=== PATIENT | female | born 1995 | race Caucasian/White ===

== ENCOUNTER 2016-06-01 06:14 | Emergency (ER) ==
[2016-06-01 06:14] VITALS: BMI 34.3
[2016-06-01 06:20] VITALS: BP 129/82; TEMP 98.7
[2016-06-01] MEDS ORDERED: DUONEB NEB STA (06:32)
[2016-06-01] MEDS ORDERED: DECADRON 4 MG/ML SDV IM STA (06:32)
--- NOTE | 2016-06-01 06:35 | ED.PDOC ---
General ED Provider: Dr. LA NENA LEW Chief Complaint: Shortness of Air Stated Complaint: wheezing, coughing, shortness of breath for 2 days, hurts to breath. Time Seen by Physician: 06:33 Mode of Arrival: Walk-In Information Source: Patient Nursing and Triage Documentation Reviewed and Agree: Yes Respiratory Complaint Exam - Asthma Complaint/Exam Symptoms Are: Still present Timing: Constant Character: Reports: Wheezing, Productive cough Aggravating: Reports: Weather change, URI Alleviating: Reports: None Associated Signs and Symptoms: Reports: URI. Denies: Fever, SOA, Chest pain, Edema, Calf pain, Sinus infection, Rapid breathing, Labored breathing Related History: Reports: Similar episode Related Surgical History: Reports: None Status Asthmaticus Risk Factors: Reports: None Current Asthma Medication Usage: Yes Recent Antibiotics: No Respiratory Distress: None Accessory Muscle Use: No Retractions: Not Present Diminished Breath Sounds: Yes Prolonged Expiratory Phase: Yes Unable to Speak Full Sentences: No Differential Diagnoses: Acute Asthma, Pneumonia Review of Systems - Review Of Systems Constitutional: Reports: No symptoms Eyes: Reports: No symptoms Ears, Nose, Mouth, Throat: Reports: No symptoms Respiratory: Reports: Cough, Short of air Cardiac: Reports: No symptoms GI: Reports: No symptoms : Reports: No symptoms Musculoskeletal: Reports: No symptoms Skin: Reports: No symptoms Neurological: Reports: No symptoms Endocrine: Reports: No symptoms Hematologic/Lymphatic: Reports: No symptoms All Other Systems: Reviewed and Negative Past Medical History - Past Medical History Previously Healthy: No Endocrine: Reports: None Cardiovascular: Reports: Other (edema of feet) Respiratory: Reports: Asthma Hematological: Reports: None Gastrointestinal: Reports: None Genitourinary: Reports: None Neuro/Psych: Reports: Other (numbness in hands) Musculoskeletal: Reports: None Cancer: Reports: None - Surgical History General Surgical History: Reports: (with posto cellulitis), Other ( OVARIAN CYSTS/ UNDIAGNOSED MISCARRAGE 11/2010) - Family History Family History: Reports: Other (preeclampsa) - Social History Smoking Status: Current every day smoker, Heavy tobacco smoker Smoking Cessation Counseling Time: > 3 min - 10 min Hx Substance Use: No Alcohol Screening: Occasionally - Immunizations Tetanus Shot up to Date: Yes Physical Exam - Physical Exam Appearance: Ill-appearing, Obese Eyes: JOSUÉ, EOMI, Conjunctiva clear ENT: Ears normal, Nose normal, Oropharynx normal Respiratory: Breath sounds diminished, Wheezes Cardiovascular: RRR, Pulses normal, No rub, No murmur GI/: Soft, Nontender, No masses, Bowel sounds normal, No Organomegaly Musculoskeletal: Normal strength, ROM intact, No edema, No calf tenderness Skin: Warm, Dry, Normal color Neurological: Sensation intact, Motor intact, Reflexes intact, Cranial nerves intact, Alert, Oriented Psychiatric: Affect appropriate, Mood appropriate Critical Care Note - Critical Care Note Total Time (mins): 0 Course - Course Orders, Labs, Meds: Orders Category Date Time Status NEBULIZER TREATMENT Stat CARDIO 06/01/16 06:32 Ordered Dexamethasone 4 mg/ml Inj [Decadron 4 mg/ml Sdv] MEDS 06/01/16 06:32 Stat 4 mg IM ONCE STA Ipratropium/Albuterol Neb [Duoneb] MEDS 06/01/16 06:32 Stat 1 vial NEB ONCE STA CHEST, 1V AP ONLY Stat RADS 06/01/16 06:32 Ordered Vital Signs: Temp Pulse Resp BP Pulse Ox 06/01/16 06:15 98.7 F 98 H 20 129/82 100 Departure - Departure Time of Disposition: 07:00 Disposition: HOME SELF-CARE Discharge Problem: Asthma exacerbation, Pleurisy Instructions: Asthma (ED) Condition: Stable Pt referred to PMD for follow-up: Yes Additional Instructions: STOP smoking. continue using albuterol 3-4 times a day If not better come back Prescriptions: Cephalexin [Keflex] 500 mg PO Q12HR #20 capsule Methylprednisolone [Medrol Dosepak] 4 mg PO DIRECTED #1 pkg Allergies/Adverse Reactions: Allergies ZEST SOAP Adverse Reaction (Uncoded 06/01/16 06:20) Swelling, BURNING, EXTREME PAIN Home Medications: Ambulatory Orders Clonazepam 0.5 mg PO TID 08/17/15 Etonogestrel [Nexplanon] 68 mg SQ d 08/17/15 Sertraline HCl [Zoloft] 100 mg PO 2 tabs daily 08/17/15 Cephalexin [Keflex] 500 mg PO Q12HR #20 capsule 06/01/16 Methylprednisolone [Medrol Dosepak] 4 mg PO DIRECTED #1 pkg 06/01/16 Disposition Discussed With: Patient
--- NOTE | 2016-06-01 07:22 | DI ---
EXAM: Single view of the chest. History: Short of breath Comparison: Chest radiograph 02/20/2014 Findings: Heart size is normal. No focal consolidation. No appreciable pleural fluid and no pneum othorax. Calcified granuloma again seen within the right lung. No acute osseous abnormalities. Impression: No acute cardiopulmonary process.
== END 2016-06-01 07:05 | disposition home or self-care (01) ==
LOC: ED 06:14
DX: J45.901 Unspecified asthma with (acute) exacerbation (principal); R09.1 Pleurisy; F17.210 Nicotine dependence, cigarettes, uncomplicated
CPT/HCPCS: 94640; 96372; 99283

== ENCOUNTER 2016-06-01 23:51 | Emergency (ER) ==
[2016-06-01 23:52] VITALS: BMI 34.3
[2016-06-02 00:03] VITALS: TEMP 98.6
[2016-06-02] MEDS ORDERED: IMITREX SUBCUT STA (00:38)
--- NOTE | 2016-06-02 00:47 | ED.PDOC ---
General ED Provider: Dr. JOSE IKLLIAN Chief Complaint: Headache Stated Complaint: patient complaints of headache that started this evening. Time Seen by Physician: 00:45 Mode of Arrival: Walk-In Information Source: Patient Exam Limitations: No limitations Nursing and Triage Documentation Reviewed and Agree: Yes Neurological Complaint Exam - Headache Complaint/Exam Onset: Sudden Duration: 7 hours Timing: Constant Worst Headache Ever: No Initial Severity: Moderate Current Severity: Severe Location: Diffuse Character: Reports: Throbbing, Unable to describe Aggravating: Reports: Bright lights Alleviating: Reports: None Associated Signs and Symptoms: Denies: Dizziness, Seizure, Nausea, Vomiting, Sinus pressure, Fever, Neck pain, Neck stiffness, Decreased LOC, Visual changes Related Surgical History: Reports: None SAH Risk Factors: Reports: None Meningitis Risk Factors: Reports: None SDH Risk Factors: Reports: None Normal Head CT Within Last 12 Months: Yes Fundoscopic Exam: Present: Normal Findings Papilledema Present: No Temporal Artery Tenderness: Present: None Sinus Tenderness: Present: None TMJ Tenderness: Present: None Meningeal Signs Positive: No Pain on Passive Flexion-Positive Kernig's: No ROM Limited In: No Limitiations Focal Weakness: Present: None Focal Sensory Loss: Present: None Gait: Normal Nystagmus Present: No Gag Reflex Present: No Babinski Sign: Negative Right, Negative Left Heel to Toe Normal: No Differential Diagnoses: Migraine Review of Systems - Review Of Systems Constitutional: Reports: No symptoms Eyes: Reports: No symptoms Ears, Nose, Mouth, Throat: Reports: No symptoms Respiratory: Reports: No symptoms Cardiac: Reports: No symptoms GI: Reports: No symptoms : Reports: No symptoms Musculoskeletal: Reports: No symptoms Skin: Reports: No symptoms Neurological: Reports: Anxiety, Headache Endocrine: Reports: No symptoms Hematologic/Lymphatic: Reports: No symptoms All Other Systems: Reviewed and Negative Past Medical History - Past Medical History Previously Healthy: No Endocrine: Reports: None Cardiovascular: Reports: Other (edema of feet) Respiratory: Reports: Asthma Hematological: Reports: None Gastrointestinal: Reports: None Genitourinary: Reports: None Neuro/Psych: Reports: Migraine, Other (numbness in hands) Musculoskeletal: Reports: None Cancer: Reports: None Last Menstrual Period: PRESENTLY Other Pertinent Past Medical History: states using 800mg motrin witout benefit and had vaginal and nasal bleed w - Surgical History General Surgical History: Reports: (with posto cellulitis), Other ( OVARIAN CYSTS/ UNDIAGNOSED MISCARRAGE 11/2010) - Family History Family History: Reports: Other (preeclamps[place]) - Social History Smoking Status: Current every day smoker, Heavy tobacco smoker Hx Substance Use: No Alcohol Screening: Occasionally - Immunizations Tetanus Shot up to Date: Yes Physical Exam - Physical Exam Appearance: Ill-appearing Ill-appearing: Moderate Pain Distress: Moderate Eyes: JOSUÉ, EOMI, Conjunctiva clear ENT: Ears normal, Nose normal, Oropharynx normal Neck: Supple Respiratory: Airway patent, Breath sounds clear, Breath sounds equal, Respirations nonlabored Cardiovascular: RRR, Pulses normal, No rub, No murmur GI/: Soft, Nontender, No masses, Bowel sounds normal, No Organomegaly Musculoskeletal: Normal strength, ROM intact, No edema, No calf tenderness Skin: Warm, Dry, Normal color Neurological: Sensation intact, Motor intact, Reflexes intact, Cranial nerves intact, Alert, Oriented Psychiatric: Anxious Critical Care Note - Critical Care Note Total Time (mins): 0 Course - Course Orders, Labs, Meds: Orders Category Date Time Status Sumatriptan Succinate [Imitrex] MEDS 06/02/16 00:38 Discontinued 6 mg SUBCUT ONCE STA Medications Discontinued Medications Generic Name Dose Route Start Last Admin Trade Name Freq PRN Reason Stop Dose Admin Sumatriptan Succinate 6 mg 06/02/16 00:38 06/02/16 00:50 Imitrex SUBCUT 06/02/16 00:39 6 mg ONCE STA Administration Vital Signs: Temp Pulse Resp BP Pulse Ox 06/02/16 01:22 96 H 20 129/87 98 06/01/16 23:52 98.6 F 110 H 20 144/93 H 96 Departure - Departure Time of Disposition: 01:31 Disposition: HOME SELF-CARE Discharge Problem: Headache Instructions: Migraine Headache (ED) Condition: Fair Pt referred to PMD for follow-up: Yes Additional Instructions: Push fluids Follow up with PCP in 3 days Prescriptions: Butalb/Acetaminophen/Caffeine [Fioricet] 1 each PO TID PRN #15 tablet PRN Reason: headache Allergies/Adverse Reactions: Allergies ZEST SOAP Adverse Reaction (Uncoded 06/02/16 00:03) Swelling, BURNING, EXTREME PAIN Home Medications: Ambulatory Orders Clonazepam 0.5 mg PO TID 08/17/15 Etonogestrel [Nexplanon] 68 mg SQ d 08/17/15 Sertraline HCl [Zoloft] 200 mg PO DAILY 08/17/15 Cephalexin [Keflex] 500 mg PO Q12HR #20 capsule 06/01/16 Methylprednisolone [Medrol Dosepak] 4 mg PO DIRECTED #1 pkg 06/01/16 Butalb/Acetaminophen/Caffeine [Fioricet] 1 each PO TID PRN #15 tablet 06/02/16 Disposition Discussed With: Patient, Family
[2016-06-02 01:23] VITALS: BP 129/87
== END 2016-06-02 01:42 | disposition home or self-care (01) ==
LOC: ED 23:51
DX: G43.909 Migraine, unspecified, not intractable, without status migrainosus (principal); F17.210 Nicotine dependence, cigarettes, uncomplicated; J45.901 Unspecified asthma with (acute) exacerbation; R09.1 Pleurisy
CPT/HCPCS: 94640; 96372; 99283

== ENCOUNTER 2016-06-17 23:35 | Emergency (ER) | payer OTHER ==
[2016-06-17 23:44] VITALS: BP 127/88; TEMP 98.8; BMI 36.3
--- NOTE | 2016-06-17 23:52 | ED.PDOC ---
General ED Provider: Dr. NAKIA GIVENS-ER Chief Complaint: Neck Pain Non-Injury Stated Complaint: my neck hurts--my appt with pain management has been rescheduled Time Seen by Physician: 23:50 Mode of Arrival: Walk-In Information Source: Patient Exam Limitations: No limitations [facility] Nursing and Triage Documentation Reviewed and Agree: Yes Musculoskeletal Complaint Exam - Neck Pain Complaint/Exam Mechanism of Injury: Reports: No known trauma Onset/Duration: several weeks Symptoms Are: Still present Timing: Constant Initial Severity: Mild Current Severity: Moderate Location: Reports: Discrete (posterior neck) Character: Reports: Dull, Aching, Spasmodic, Stiffness Aggravating: Reports: Position, Movement Alleviating: Reports: None Associated Signs and Symptoms: Denies: Swelling, Redness, Bruising, Fever, Nuchal rigidity, Weakness, Headache, Paresthesia Meningitis Risk Factors: Reports: None Cervical Spine Injury Risk Factors: Reports: None Related Surgical History: Reports: None Carotid Bruit Present: No Pain on Passive Flexion: No Positive Kernig's Sign: No ROM Limited In: Present: Flexion, Extension Pain Located at: posterior neck Tenderness: Present: Midline Radiates to: Present: Right arm Focal Weakness: Present: None Focal Sensory Loss: Reports: None Differential Diagnoses: Other Review of Systems - Review Of Systems Constitutional: Reports: No symptoms Eyes: Reports: No symptoms Ears, Nose, Mouth, Throat: Reports: No symptoms Respiratory: Reports: No symptoms Cardiac: Reports: No symptoms GI: Reports: No symptoms : Reports: No symptoms Musculoskeletal: Reports: Neck pain Skin: Reports: No symptoms Neurological: Reports: No symptoms Endocrine: Reports: No symptoms Hematologic/Lymphatic: Reports: No symptoms All Other Systems: Reviewed and Negative Past Medical History - Past Medical History Previously Healthy: No Endocrine: Reports: None Cardiovascular: Reports: Other (edema of feet) Respiratory: Reports: Asthma Hematological: Reports: None Gastrointestinal: Reports: None Genitourinary: Reports: None Neuro/Psych: Reports: Migraine, Other (numbness in hands) Musculoskeletal: Reports: None Cancer: Reports: None Last Menstrual Period: this month - unsure of date Other Pertinent Past Medical History: states using 800mg motrin witout benefit and had vaginal and nasal bleed w - Surgical History General Surgical History: Reports: (with posto cellulitis), Other ( OVARIAN CYSTS/ UNDIAGNOSED MISCARRAGE 11/2010) - Family History Family History: Reports: Other (preeclampsa) - Social History Smoking Status: Current every day smoker, Heavy tobacco smoker Hx Substance Use: No Alcohol Screening: None Lives: With family - Immunizations Tetanus Shot up to Date: Yes Physical Exam - Physical Exam Appearance: Well-appearing, No pain distress, Well-nourished Pain Distress: Moderate Eyes: JOSUÉ, EOMI, Conjunctiva clear ENT: Ears normal, Nose normal, Oropharynx normal Neck: Supple Respiratory: Airway patent, Breath sounds clear, Breath sounds equal, Respirations nonlabored Cardiovascular: RRR, Pulses normal, No rub, No murmur GI/: Soft, Nontender, No masses, Bowel sounds normal, No Organomegaly Musculoskeletal: Normal strength, ROM intact, No edema, No calf tenderness Skin: Warm Neurological: Sensation intact, Motor intact, Reflexes intact, Cranial nerves intact, Alert, Oriented Psychiatric: Affect appropriate, Mood appropriate Critical Care Note - Critical Care Note Total Time (mins): 0 Course - Course Vital Signs: Temp Pulse Resp BP Pulse Ox 06/17/16 23:36 98.8 F 110 H 20 127/88 96 Departure - Departure Time of Disposition: 23:53 Disposition: HOME SELF-CARE Discharge Problem: Chronic neck pain Instructions: Neck Pain (ED) Condition: Good Pt referred to PMD for follow-up: Yes Additional Instructions: f/u with pcp Allergies/Adverse Reactions: Allergies ZEST SOAP Adverse Reaction (Uncoded 06/17/16 23:44) Swelling, BURNING, EXTREME PAIN Home Medications: Ambulatory Orders Etonogestrel [Nexplanon] 68 mg SQ d 08/17/15 Butalb/Acetaminophen/Caffeine [Fioricet] 1 each PO TID PRN #15 tablet 06/02/16 Disposition Discussed With: Patient
[2016-06-17] MEDS ORDERED: MORPHINE 4 MG/ML SYRINGE IM STA (23:54)
[2016-06-17] MEDS ORDERED: PHENERGAN 25 MG/ML VIAL IM STA (23:54)
[2016-06-17] MEDS ORDERED: NORFLEX IM STA (23:54)
[2016-06-18 00:22] LABS: URINE PREGNANCY INTERNAL QC INTERNAL QC VALID
== END 2016-06-18 01:10 | disposition home or self-care (01) ==
LOC: ED 23:35
DX: M54.2 Cervicalgia (principal); G89.29 Other chronic pain; F17.210 Nicotine dependence, cigarettes, uncomplicated
CPT/HCPCS: 81025; 96372; 99283

== ENCOUNTER 2016-07-12 21:11 | Emergency (ER) ==
[2016-07-12 21:22] VITALS: BP 128/93; TEMP 98.9; BMI 35.0
[2016-07-12 21:30] LABS: BILIRUBIN,URINE Negative (NEGATIVE); KETONES,URINE Negative (NEGATIVE); LEUKOCYTE ESTERASE ,URINE Negative (NEGATIVE); NITRITE,URINE Negative (NEGATIVE); PROTEIN,URINE Negative (NEGATIVE); URINE, BLOOD Negative (NEGATIVE)
[2016-07-12 21:35] LABS: ADD URINE MICROSCOPIC NO; URINE PREGNANCY INTERNAL QC INTERNAL QC VALID
[2016-07-12] MEDS ORDERED: TORADOL IVP STA (21:45)
[2016-07-12] MEDS ORDERED: ZOFRAN 4 MG/2 ML IVP STA (21:47)
[2016-07-12] MEDS ORDERED: SODIUM CHLORIDE 1,000 ML IV STA (21:47)
[2016-07-12 22:05] LABS: BASOPHILS # (AUTO) 0.1 K/uL (0-0.2); BASOPHILS % (AUTO) 0.7 % (0.0-3.0); EOSINOPHILS # (AUTO) 0.8 K/ul (0.0-0.7); EOSINOPHILS % (AUTO) 8.5 % (0.0-7.0); HEMATOCRIT 45.5 % (37.0-47.0); HEMOGLOBIN 15.5 g/dl (12.0-16.0); IMMATURE GRANULOCYTE % (AUTO) 0.2 % (0.0-5.0); LYMPHOCYTES # (AUTO) 2.6 K/uL (0.60-3.4); LYMPHOCYTES % (AUTO) 27.1 (10.0-50.0); MEAN CORPUSCULAR HEMOGLOBIN 29.4 pg (27.0-31.0); MEAN CORPUSCULAR HGB CONC 34.1 (31.8-35.4); MEAN CORPUSCULAR VOLUME 86.2 fl (81.0-99.0); MONOCYTES # (AUTO) 0.7 K/uL (0.4-2.0); MONOCYTES % (AUTO) 6.7 (0-10); NEUTROPHILS # (AUTO) 5.5 K/ul (2.0-6.9); NEUTROPHILS % (AUTO) 56.8; PLATELET COUNT 221 10^3/uL (140-440); RED BLOOD COUNT 5.28 10^6/ul (4.20-5.40); WHITE BLOOD COUNT 9.69 K/ul (4.6-10.2)
[2016-07-12 22:26] LABS: ALBUMIN 3.9 g/dL (3.4-5.0); ALBUMIN/GLOBULIN RATIO 1.3; ANION GAP 12.9; BILIRUBIN,TOTAL 0.12 mg/dL (0.00-1.20); BUN/CREATININE RATIO 12.65; CALCIUM 9.7 mg/dL (8.2-10.2); CREATININE 0.79 mg/dL (0.60-1.30); POTASSIUM 3.9 mmol/L (3.5-5.10); TOTAL PROTEIN 6.9 g/dL (6.4-8.2)
--- NOTE | 2016-07-12 23:12 | CT ---
EXAM: CT abdomen pelvis without intravenous contrast 07/12/2016. Sagittal and coronal reformatted images obtained HISTORY: Lower abdominal pain. Ovarian cysts. COMPARISON: 02/19/2016 FINDINGS: The liver, gallbladder, adrenal glands and kidneys show no acute process. The spleen and pancreas show no acute abnormality. There is no bowel obstruction. Normal appendix. Unremarkable urinary bladder. No free air. Left adnexal cystic lesion on image 17 measures approximately 5.0 x 3.0 cm diameter. Pelvic ultrasound could be obtained for further evaluation. Limited characterization due to the lac k of intravenous contrast. There is trace adjacent free fluid. IMPRESSION: 1. No urinary or bowel obstruction. 2. Left adnexal cyst measures approximately 5.0 x 3.0 cm diameter. Limited characterization due to lack of intravenous contrast. Pelvic ultrasound could be obtained for further evaluation. 3. Trace pelvic free fluid.
[2016-07-12] MEDS ORDERED: DILAUDID 1 MG/ML SYRINGE IVP STA (23:20)
--- NOTE | 2016-07-12 23:39 | ED.PDOC ---
General ED Provider: Dr. JOSE KILLIAN Chief Complaint: Abdominal Pain Stated Complaint: Patient is a 21 year old female who comes to the ER with c/o of sharp to dull pain in low abdominal area. Feels like prior ovarian cyst. she had aCT last summer with findings of 7.7 cm cyst in left ovary. Has OBGY apt in the morning. Time Seen by Physician: 22:00 Mode of Arrival: Walk-In Information Source: Patient Exam Limitations: No limitations [facility] and T[facility] Documentation Reviewed and Agree: Yes Review of Systems - Review Of Systems Constitutional: Reports: Loss of appetite Eyes: Reports: No symptoms Ears, Nose, Mouth, Throat: Reports: No symptoms Respiratory: Reports: No symptoms Cardiac: Reports: No symptoms GI: Reports: Abdominal pain (Left lower quadrant ) : Reports: Pain Musculoskeletal: Reports: No symptoms Skin: Reports: No symptoms Neurological: Reports: Anxiety All Other Systems: Reviewed and Negative Past Medical History - Past Medical History Previously Healthy: No Endocrine: Reports: None Cardiovascular: Reports: Other (edema of feet) Respiratory: Reports: Asthma Hematological: Reports: None Gastrointestinal: Reports: None Genitourinary: Reports: None Neuro/Psych: Reports: Migraine, Other (numbness in hands) Musculoskeletal: Reports: None Cancer: Reports: None Last Menstrual Period: 10 days ago Other Pertinent Past Medical History: states using 800mg motrin witout benefit and had vaginal and nasal bleed w - Surgical History General Surgical History: Reports: (with posto cellulitis), Other ( OVARIAN CYSTS/ UNDIAGNOSED MISCARRAGE 11/2010) - Family History Family History: Reports: Other (preeclampsa) - Social History Smoking Status: Current every day smoker, Heavy tobacco smoker Hx Substance Use: No Alcohol Screening: None - Immunizations Tetanus Shot up to Date: Yes Physical Exam - Physical Exam Appearance: Ill-appearing, Obese Ill-appearing: Moderate Pain Distress: Severe Neck: Supple Respiratory: Airway patent, Breath sounds clear, Breath sounds equal, Respirations nonlabored Cardiovascular: Tachycardia GI/: Soft, Tender (Left lower quadrant ) Musculoskeletal: Normal strength, ROM intact, No edema, No calf tenderness Skin: Warm, Dry, Normal color Neurological: Sensation intact, Motor intact, Reflexes intact, Cranial nerves intact, Alert, Oriented Psychiatric: Anxious Interpretation - Radiology Interpretation Radiology Interpretation By: Radiologist Radiology Results: Positive Exam Interpreted: CT Scan (Left Ovarian Cyst 5 cm ) Re-Evaluation - Re-Evaluation Time of Re-Evaluation: 23:40 Status: Improved Pain Level: minimal after Dilaudid. Critical Care Note - Critical Care Note Total Time (mins): 0 Course - Course Hematology/Chemistry: 07/12/16 21:50 07/12/16 21:50 Orders, Labs, Meds: Lab Review 07/12/16 07/12/16 21:25 21:50 WBC 9.69 RBC 5.28 Hgb 15.5 Hct 45.5 MCV 86.2 MCH 29.4 MCHC 34.1 RDW [place] 13.8 Plt Count 221 Immature Gran % (Auto) 0.2 Neut % (Auto) 56.8 Lymph % (Auto) 27.1 [place] % (Auto) 6.7 Eos % (Auto) 8.5 H Baso % (Auto) 0.7 Immature Gran # (Auto) 0.0 Neut # 5.5 Lymph # 2.6 [place] # 0.7 Eos # 0.8 H Baso # 0.1 Sodium 139 Potassium 3.9 Chloride 111 H Carbon Dioxide 19 L Anion Gap 12.9 BUN 10 Creatinine 0.79 Estimated GFR (MDRD) 92.00 BUN/Creatinine Ratio 12.65 Glucose 90 Calcium 9.7 Total Bilirubin 0.12 AST 13 L ALT 15 Alkaline Phosphatase 62 Total Protein 6.9 Albumin 3.9 Globulin 3.0 Albumin/Globulin Ratio 1.30 Amylase 68 Lipase 44 Urine Color Yellow Urine Clarity Clear Urine pH 6.0 Ur Specific [place] >=1.030 Urine Protein Negative Urine Glucose (UA) Negative Urine Ketones Negative Urine Blood Negative Urine Nitrite Negative Urine Bilirubin Negative Urine Urobilinogen 0.2 Ur Leukocyte Esterase Negative Urine Test Negative Orders Category Date Time Status ED IV/MEDIPORT/POWERPORT .ONCE EMERGENCY 07/12/16 22:03 Active AMYLASE Stat LAB 07/12/16 21:50 Completed CBC W/ AUTO DIFF Stat LAB 07/12/16 21:50 Completed COMPREHENSIVE METABOLIC PANEL Stat LAB 07/12/16 21:50 Completed LIPASE Stat LAB 07/12/16 21:50 Completed URINALYSIS C & S IF INDICATED Stat LAB 07/12/16 21:25 Completed URINE Stat LAB 07/12/16 21:25 Completed 0.9 % Sodium Chloride [Saline Flush] MEDS 07/12/16 22:03 Discontinued 1 syr IVF PRN PRN Hydromorphone HCl [Dilaudid 1 mg/ml Syringe] MEDS 07/12/16 23:20 Discontinued 1 mg IVP ONCE STA Ketorolac Tromethamine [Toradol] MEDS 07/12/16 21:45 Discontinued 30 mg IVP ONCE STA Ondansetron HCl/Pf [Zofran 4 mg/2 ml] MEDS 07/12/16 21:47 Discontinued 4 mg IVP ONCE STA Sodium Chloride 0.9% [Sodium Chloride] 1,000 ml MEDS 07/12/16 21:[address] ABD/PEL WO RENAL STONE PROT Stat RADS 07/12/16 22:06 Completed Medications Discontinued Medications Generic Name Dose Route Start Last Admin Trade Name Freq PRN Reason Stop Dose Admin Hydromorphone HCl 1 mg 07/12/16 23:20 07/12/16 23:30 Dilaudid 1 Mg/Ml Syringe IVP 07/12/16 23:21 1 mg ONCE STA Administration Sodium Chloride 1,000 mls @ 1,000 mls/hr 07/12/16 21:47 07/12/16 22:38 Sodium Chloride IV 07/12/16 22:46 1,000 mls/hr BOLUS STA Administration Ketorolac Tromethamine 30 mg 07/12/16 21:45 07/12/16 22:41 Toradol IVP 07/12/16 21:46 30 mg ONCE STA Administration Ondansetron HCl 4 mg 07/12/16 21:47 07/12/16 22:39 Zofran 4 Mg/2 Ml IVP 07/12/16 21:48 4 mg ONCE STA Administration Sodium Chloride 1 syr 07/12/16 22:03 07/12/16 22:44 Saline Flush IVF 1 syr PRN PRN Administration To flush IV Vital Signs: Temp Pulse Resp BP Pulse Ox 07/12/16 21:12 98.9 F 104 H 20 128/93 H 96 Departure - Departure Time of Disposition: 23:40 Disposition: HOME SELF-CARE Discharge Problem: Ovarian cyst Instructions: Ovarian Cyst (ED) Condition: Stable Pt referred to PMD for follow-up: Yes Additional Instructions: Push fluids Take pain medications as prescribed. Keep Apt with OBGYN in the Morning. Prescriptions: Hydrocodone/Acetaminophen [[place] 5-325 Tablet] 1 tab PO Q6HR PRN #20 tablet PRN Reason: PAIN Allergies/Adverse Reactions: Allergies ZEST SOAP Adverse Reaction (Uncoded 07/12/16 21:22) Swelling, BURNING, EXTREME PAIN Home Medications: Ambulatory Orders Etonogestrel [Nexplanon] 68 mg SQ d 08/17/15 Sertraline HCl [Zoloft] 200 mg PO DAILY #60 06/22/16 Hydrocodone/Acetaminophen [[place] 5-325 Tablet] 1 tab PO Q6HR PRN #20 tablet Disposition Discussed With: Patient
== END 2016-07-12 23:51 | disposition home or self-care (01) ==
LOC: ED 21:11
DX: N83.202 Unspecified ovarian cyst, left side (principal); F17.210 Nicotine dependence, cigarettes, uncomplicated
CPT/HCPCS: 36415; 74176; 80053; 81001; 81025; 82150; 83690; 85025; 96361; 96374; 96375; 99283

== ENCOUNTER 2016-08-04 13:10 | Outpatient (CLI) ==
[2016-08-04 15:36] LABS: FLU INTERNAL QC INTERNAL QC VALID; RAPID FLU A NEGATIVE (NEGATIVE); RAPID FLU B NEGATIVE (NEGATIVE)
== END 2016-08-04 13:11 | disposition home or self-care (01) ==
LOC: LAB 13:10
PROVIDERS: ATTEND Nurse Practitioner Family
DX: J02.9 Acute pharyngitis, unspecified (principal); R52 Pain, unspecified
CPT/HCPCS: 87651; 87804; 87880

== ENCOUNTER 2016-08-14 13:15 | Emergency (ER) ==
[2016-08-14 13:23] VITALS: BP 132/87; TEMP 98.5; BMI 35.6
[2016-08-14] MEDS ORDERED: SOLU-MEDROL 125 MG IVP STA (13:42)
[2016-08-14] MEDS ORDERED: DUONEB NEB STA ×2 (13:42→14:05)
--- NOTE | 2016-08-14 13:43 | ED.PDOC ---
General ED Provider: Dr. SHIVAM BOOKER JR Chief Complaint: Shortness of Air Stated Complaint: hx asthma--became soa this am at 0900--feels like breathing denita straw--has some rt side chest pain--has used neb/inhaler in past but is out of meds-[End]has faint audible wheezes--bilateral wheezes heard on ausultation-- [ End ] 98.5 80 16 96% 132/87 10 Time Seen by Physician: 13:41 Mode of Arrival: Walk-In Information Source: Patient Exam Limitations: No limitations Primary Care [facility] Nursing and Triage Documentation Reviewed and Agree: No Review of Systems - Review Of Systems Constitutional: Reports: Malaise, Weakness Eyes: Reports: No symptoms Ears, Nose, Mouth, Throat: Reports: Ear pain, Throat pain Respiratory: Reports: Short of air, Wheezing, Other (pleuritic chest pain) Cardiac: Reports: Chest pain GI: Reports: No symptoms : Reports: No symptoms Musculoskeletal: Reports: No symptoms Skin: Reports: No symptoms Neurological: Reports: No symptoms Endocrine: Reports: No symptoms Hematologic/Lymphatic: Reports: No symptoms All Other Systems: Other Past Medical History - Past Medical History Previously Healthy: No Endocrine: Reports: None Cardiovascular: Reports: Other (edema of feet) Respiratory: Reports: Asthma, Other (C-7 FX, (3) C 4-6 BULGING DISC IN NECK WITH NARROW PASSAGEWAY) Hematological: Reports: None Gastrointestinal: Reports: None Genitourinary: Reports: None Neuro/Psych: Reports: Migraine, Anxiety, Depression, Other (numbness in hands; C 4-6 BULGING DISC IN NECK WITH NARROW PASSAGEWAY) Musculoskeletal: Reports: Arthritis Cancer: Reports: None Last Menstrual Period: 4 days agoasth depr anx arth Other Pertinent Past Medical History: states using 800mg motrin witout benefit and had vaginal and nasal bleed w - Surgical History General Surgical History: Reports: (with postop cellulitis), Tonsillectomy, Orthopedic (C-7 FX,), Other (OVARIAN CYSTS/ UNDIAGNOSED MISCARRAGE 11/2010; EAR TUBES) - Family History Family History: Reports: Other (preeclampsa) - Social History Smoking Status: Current every day smoker, Heavy tobacco smoker Hx Substance Use: No Alcohol Screening: None Physical Exam - Physical Exam Appearance: Ill-appearing Ill-appearing: Moderate Pain Distress: Moderate Eyes: JOSUÉ ENT: Nose normal, Oropharynx normal Neck: Supple Respiratory: Airway patent, Breath sounds diminished, Wheezes Cardiovascular: RRR, Tachycardia Musculoskeletal: Normal strength Skin: Warm Neurological: Sensation intact Interpretation - Radiology Interpretation Radiology Interpretation By: Radiologist Radiology Results: Negative Exam Interpreted: CXR Critical Care Note - Critical Care Note Total Time (mins): 0 Course - Course Hematology/Chemistry: 08/14/16 13:49 08/14/16 13:49 Orders, Labs, Meds: Lab Review 08/14/16 08/14/16 12:46 13:49 WBC 10.84 H RBC 5.35 Hgb 15.4 Hct 44.4 MCV 83.0 MCH 28.8 MCHC 34.7 RDW [employer] 12.9 Plt Count 250 Immature Gran % (Auto) 0.4 Neut % (Auto) 64.2 Lymph % (Auto) 23.9 [place] % (Auto) 5.4 Eos % (Auto) 5.4 Baso % (Auto) 0.7 Immature Gran # (Auto) 0.0 Neut # 7.0 H Lymph # 2.6 [place] # 0.6 Eos # 0.6 Baso # 0.1 Sodium 138 Potassium 4.1 Chloride 108 H Carbon Dioxide 22 Anion Gap 12.1 BUN 13 Creatinine 0.84 Estimated GFR (MDRD) 86.00 BUN/Creatinine Ratio 15.47 Glucose 89 Calcium 9.4 Total Bilirubin 0.57 AST 13 L ALT 13 Alkaline Phosphatase 76 Total Protein 7.2 Albumin 4.0 Globulin 3.2 Albumin/Globulin Ratio 1.25 Serum , Qual Negative Orders Category Date Time Status NEBULIZER TREATMENT Stat CARDIO 08/14/16 13:42 Completed ED IV/MEDIPORT/POWERPORT .ONCE EMERGENCY 08/14/16 13:42 Active CBC W/ AUTO DIFF Stat LAB 08/14/16 13:49 Completed COMPREHENSIVE METABOLIC PANEL Stat LAB 08/14/16 13:49 Completed MOLECULAR GROUP A STREP Stat LAB 08/14/16 13:50 Results SERUM TEST [SERUM ] Stat LAB 08/14/16 12:46 Completed STREP SCREEN Stat LAB 08/14/16 13:50 Results 0.9 % Sodium Chloride [Saline Flush] MEDS 08/14/16 13:42 Discontinued 1 syr IVF PRN PRN Butorphanol Tartrate [Stadol] MEDS 08/14/16 14:19 Discontinued 2 mg IVP ONCE STA Ipratropium/Albuterol Neb [Duoneb] MEDS 08/14/16 13:42 Discontinued 1 vial NEB ONCE STA Ketorolac Tromethamine [Toradol] MEDS 08/14/16 13:46 Discontinued 30 mg IVP ONCE STA Methylprednisolone Sod Succ/Pf [Solu-Medrol 125 mg] MEDS 08/14/16 13:42 Discontinued 125 mg IVP ONCE STA Ondansetron HCl/Pf [Zofran 4 mg/2 ml] MEDS 08/14/16 14:19 Discontinued 4 mg IVP ONCE STA CHEST, 2 VIEWS PA & LAT Stat RADS 08/14/16 13:42 Completed Medications Discontinued Medications Generic Name Dose Route Start Last Admin Trade Name Freq PRN Reason Stop Dose Admin Albuterol/Ipratropium 1 vial 08/14/16 13:42 08/14/16 13:57 Duoneb NEB 08/14/16 13:43 1 vial ONCE STA Administration Butorphanol Tartrate 2 mg 08/14/16 14:19 08/14/16 14:27 Stadol IVP 08/14/16 14:20 2 mg ONCE STA Administration Ketorolac Tromethamine 30 mg 08/14/16 13:46 08/14/16 14:59 Toradol IVP 08/14/16 13:47 Not Given ONCE STA Methylprednisolone Sodium Succinate 125 mg 08/14/16 13:42 08/14/16 14:15 Solu-Medrol 125 Mg IVP 08/14/16 13:43 125 mg ONCE STA Administration Ondansetron HCl 4 mg 08/14/16 14:19 08/14/16 14:27 Zofran 4 Mg/2 Ml IVP 08/14/16 14:20 4 mg ONCE STA Administration Sodium Chloride 1 syr 08/14/16 13:42 Saline Flush IVF PRN PRN To flush IV Vital Signs: Temp Pulse Resp BP Pulse Ox 08/14/16 13:15 98.5 F 80 16 132/87 96 Departure - Departure Time of Disposition: 14:29 Disposition: HOME SELF-CARE Discharge Problem: Asthma attack Instructions: How to Use a Nebulizer (ED), Asthma (ED) Condition: Good Pt referred to PMD for follow-up: Yes Additional Instructions: medications as prescribed solumedrol given once if not resolved in three days may begin medrol dose pack if OK with PMD duonebs two to four times each day for three days recheck PMD 3-9 days return if fever over 101.0 Prescriptions: Acetaminophen with Codeine [Tylenol #3 Tab] 1 - 2 tab PO QID PRN #20 tablet PRN Reason: PAIN Ipratropium/Albuterol Neb [Duoneb] 1 vial NEB RTQ6H PRN #30 vial.neb PRN Reason: Wheezing Methylprednisolone [Medrol Dosepak] 4 mg PO DIRECTED #1 pkg Allergies/Adverse Reactions: Allergies ketorolac [From Toradol] Adverse Reaction (Verified 08/14/16 13:55) ZEST SOAP Adverse Reaction (Uncoded 08/14/16 13:22) Swelling, BURNING, EXTREME PAIN Home Medications: Ambulatory Orders Sertraline HCl [Zoloft] 200 mg PO DAILY #60 06/22/16 Acetaminophen with Codeine [Tylenol #3 Tab] 1 - 2 tab PO QID PRN #20 tablet Ipratropium/Albuterol Neb [Duoneb] 1 vial NEB RTQ6H PRN #30 vial.neb 08/14/16 Methylprednisolone [Medrol Dosepak] 4 mg PO DIRECTED #1 pkg 08/14/16
[2016-08-14] MEDS ORDERED: TORADOL IVP STA (13:46)
[2016-08-14 13:55] LABS: BASOPHILS # (AUTO) 0.1 K/uL (0-0.2); BASOPHILS % (AUTO) 0.7 % (0.0-3.0); EOSINOPHILS # (AUTO) 0.6 K/ul (0.0-0.7); EOSINOPHILS % (AUTO) 5.4 % (0.0-7.0); HEMATOCRIT 44.4 % (37.0-47.0); HEMOGLOBIN 15.4 g/dl (12.0-16.0); IMMATURE GRANULOCYTE % (AUTO) 0.4 % (0.0-5.0); LYMPHOCYTES # (AUTO) 2.6 K/uL (0.60-3.4); LYMPHOCYTES % (AUTO) 23.9 (10.0-50.0); MEAN CORPUSCULAR HEMOGLOBIN 28.8 pg (27.0-31.0); MEAN CORPUSCULAR HGB CONC 34.7 (31.8-35.4); MONOCYTES # (AUTO) 0.6 K/uL (0.4-2.0); MONOCYTES % (AUTO) 5.4 (0-10); NEUTROPHILS % (AUTO) 64.2; PLATELET COUNT 250 10^3/uL (140-440); RED BLOOD COUNT 5.35 10^6/ul (4.20-5.40); WHITE BLOOD COUNT 10.84 K/ul (4.6-10.2)
[2016-08-14 14:12] LABS: ALBUMIN/GLOBULIN RATIO 1.25; ANION GAP 12.1; BILIRUBIN,TOTAL 0.57 mg/dL (0.00-1.20); BUN/CREATININE RATIO 15.47; CALCIUM 9.4 mg/dL (8.2-10.2); CREATININE 0.84 mg/dL (0.60-1.30); POTASSIUM 4.1 mmol/L (3.5-5.10); TOTAL PROTEIN 7.2 g/dL (6.4-8.2)
[2016-08-14 14:13] LABS: SERUM PREGNANCY INTERNAL QC INTERNAL QC VALID
[2016-08-14] MEDS ORDERED: STADOL IVP STA (14:19)
[2016-08-14] MEDS ORDERED: ZOFRAN 4 MG/2 ML IVP STA (14:19)
--- NOTE | 2016-08-14 15:04 | DI ---
EXAM: Two views of the chest. History: Short of breath Comparison: Chest radiograph 06/01/2016 Findings: Heart size is normal. No focal consolidation. No appreciable pleural fluid and no pneum othorax. Calcified granuloma again seen within the right lung. No acute osseous abnormalities Impression: No acute cardiopulmonary process.
== END 2016-08-14 15:15 | disposition home or self-care (01) ==
LOC: ED 13:15
DX: J45.901 Unspecified asthma with (acute) exacerbation (principal); F17.210 Nicotine dependence, cigarettes, uncomplicated
CPT/HCPCS: 36415; 80053; 84703; 85025; 87651; 87880; 94640; 96374; 96375; 99283

== ENCOUNTER 2016-10-12 23:11 | Emergency (ER) ==
[2016-10-12] MEDS ORDERED: SODIUM CHLORIDE 1,000 ML IV STA (23:17)
[2016-10-12 23:18] VITALS: BP 131/97; TEMP 98.2; BMI 34.3
[2016-10-12 23:30] LABS: BASOPHILS # (AUTO) 0.1 K/uL (0-0.2); BASOPHILS % (AUTO) 0.5 % (0.0-3.0); EOSINOPHILS # (AUTO) 0.4 K/ul (0.0-0.7); EOSINOPHILS % (AUTO) 3.6 % (0.0-7.0); HEMATOCRIT 40.9 % (37.0-47.0); HEMOGLOBIN 14.4 g/dl (12.0-16.0); IMMATURE GRANULOCYTE % (AUTO) 0.3 % (0.0-5.0); LYMPHOCYTES # (AUTO) 2.9 K/uL (0.60-3.4); LYMPHOCYTES % (AUTO) 25.6 (10.0-50.0); MEAN CORPUSCULAR HEMOGLOBIN 29.4 pg (27.0-31.0); MEAN CORPUSCULAR HGB CONC 35.2 (31.8-35.4); MEAN CORPUSCULAR VOLUME 83.5 fl (81.0-99.0); MONOCYTES # (AUTO) 0.6 K/uL (0.4-2.0); MONOCYTES % (AUTO) 5.2 (0-10); NEUTROPHILS # (AUTO) 7.3 K/ul (2.0-6.9); NEUTROPHILS % (AUTO) 64.8; PLATELET COUNT 191 10^3/uL (140-440); WHITE BLOOD COUNT 11.23 K/ul (4.6-10.2)
[2016-10-12] MEDS ORDERED: MORPHINE 4 MG/ML SYRINGE IVP STA (23:49)
[2016-10-12] MEDS ORDERED: PHENERGAN 25 MG/ML VIAL 25 MG in SODIUM CHLORIDE 50 ML IV STA (23:49)
[2016-10-12 23:56] LABS: SERUM PREGNANCY INTERNAL QC INTERNAL QC VALID
[2016-10-12] MEDS ORDERED: PHENERGAN 25 MG/ML VIAL ONE (23:56)
--- NOTE | 2016-10-12 23:56 | ED.PDOC ---
General ED Provider: Dr. JOSE KILLIAN Chief Complaint: Abdominal Pain Stated Complaint: Binaeindiana is a a 21 year old female who comes to the ER with compalints of possible miscarraiage after she notice that she had passed clost and tissure today while in the shower. Her last menstral period was 6 weeks ago. She did not know she was . 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 Exam - Vaginal Bleeding Complaint/Exam Onset/Duration: 1 day Symptoms Are: Resolved Timing: Intermittent Character: Reports: Clots, Tissue Alleviating: Reports: None Associated Signs and Symptoms: Reports: Abdominal pain, Cramping Related History: Reports: Similar episode : 3 Para: 1 Hx Total # of Abortions (Spontaneous & Elective): 2 Ectopic Risk Factors: Reports: None Spontaneous AB Risk Factors: Denies: Increased age of mother, Increased age of father, Increased parity Placental Abruption Risk Factors: Reports: Smoking Patient Rh Status: Unknown Abdominal Findings: Absent: Rebound tenderness, CVA Tenderness, Hernia Uterine Exam: Tenderness Differential Diagnoses: Incomplete AB Review of Systems - Review Of Systems Constitutional: Reports: No symptoms Eyes: Reports: No symptoms Ears, Nose, Mouth, Throat: Reports: No symptoms Respiratory: Reports: No symptoms Cardiac: Reports: No symptoms GI: Reports: Abdominal pain : Reports: Other (vaginal bleeding / clots ) Musculoskeletal: Reports: No symptoms Skin: Reports: No symptoms Neurological: Reports: No symptoms Endocrine: Reports: No symptoms Hematologic/Lymphatic: Reports: No symptoms All Other Systems: Reviewed and Negative Past Medical History - Past Medical History Previously Healthy: No Endocrine: Reports: None Cardiovascular: Reports: Other (edema of feet) Respiratory: Reports: Asthma, Other (C-7 FX, (3) C 4-6 BULGING DISC IN NECK WITH NARROW PASSAGEWAY) Hematological: Reports: None Gastrointestinal: Reports: None Genitourinary: Reports: Other (ovarian Cyst ) Neuro/Psych: Reports: Migraine, Anxiety, Depression, Other (numbness in hands; C 4-6 BULGING DISC IN NECK WITH NARROW PASSAGEWAY) Musculoskeletal: Reports: Arthritis Cancer: Reports: None Last Menstrual Period: 6 weeks ago Other Pertinent Past Medical History: states using 800mg motrin witout benefit and had vaginal and nasal bleed w - Surgical History General Surgical History: Reports: (with postop cellulitis), Tonsillectomy, Orthopedic (C-7 FX,), Other (OVARIAN CYSTS/ UNDIAGNOSED MISCARRAGE 11/2010; EAR TUBES) - Family History Family History: Reports: Other (preeclampsa) - Social History Smoking Status: Current every day smoker, Heavy tobacco smoker Hx Substance Use: No Alcohol Screening: Occasionally - Immunizations Tetanus Shot up to Date: Yes Physical Exam - Physical Exam Appearance: Ill-appearing Ill-appearing: Moderate Pain Distress: Severe ENT: Ears normal, Nose normal, Oropharynx normal Neck: Supple Respiratory: Airway patent, Breath sounds clear, Breath sounds equal, Respirations nonlabored GI/: Soft, Bowel sounds normal, Tender Musculoskeletal: Normal strength, ROM intact, No edema, No calf tenderness Skin: Warm, Dry, Normal color Neurological: Sensation intact, Motor intact, Reflexes intact, Cranial nerves intact, Alert, Oriented Psychiatric: Anxious Critical Care Note - Critical Care Note Total Time (mins): 0 Course - Course Hematology/Chemistry: 10/12/16 23:25 10/12/16 23:25 Orders, Labs, Meds: Lab Review 10/12/16 10/13/16 23:25 00:45 WBC 11.23 H RBC 4.90 Hgb 14.4 Hct 40.9 MCV 83.5 MCH 29.4 MCHC 35.2 RDW [employer] [place] 13.3 Plt Count 191 Immature Gran % (Auto) 0.3 Neut % (Auto) 64.8 Lymph % (Auto) 25.6 [place] % (Auto) 5.2 Eos % (Auto) 3.6 Baso % (Auto) 0.5 Immature Gran # (Auto) 0.0 Neut # 7.3 H Lymph # 2.9 [place] # 0.6 Eos # 0.4 Baso # 0.1 Sodium 138 Potassium 3.7 Chloride 107 Carbon Dioxide 20 L Anion Gap 14.7 BUN 15 Creatinine 0.83 Estimated GFR (MDRD) 87.00 BUN/Creatinine Ratio 18.07 Glucose 82 Calcium 9.8 Total Bilirubin 0.21 AST 10 L ALT 13 Alkaline Phosphatase 60 Total Protein 6.9 Albumin 3.9 Globulin 3.0 Albumin/Globulin Ratio 1.30 Serum , Qual Negative Urine Color Yellow Urine Clarity Clear Urine pH 6.0 Ur Specific [place] <1.005 Urine Protein Negative Urine Glucose (UA) Negative Urine Ketones Negative Urine Blood 2+ Urine Nitrite Negative Urine Bilirubin Negative Urine Urobilinogen N Ur Leukocyte Esterase Negative Urine Microscopic RBC 10-20 Ur Squamous Epith Cells Not present Blood Type A POSITIVE Orders Category Date Time Status ED IV/MEDIPORT/POWERPORT .ONCE EMERGENCY 10/12/16 23:17 Active CBC W/ AUTO DIFF Stat LAB 10/12/16 23:25 Completed COMPREHENSIVE METABOLIC PANEL Stat LAB 10/12/16 23:25 Completed SERUM Stat LAB 10/12/16 23:25 Completed TYPE/RH (INHOUSE LAB) [ABO/RH TYPE] Stat LAB 10/12/16 23:25 Completed UA [URINALYSIS C & S IF INDICATED] Stat LAB 10/13/16 00:45 Completed 0.9 % Sodium Chloride [Saline Flush] MEDS 10/12/16 23:17 Discontinued 1 syr IVF PRN PRN Morphine Sulfate [Morphine 4 mg/ml Syringe] MEDS 10/12/16 23:49 Discontinued 4 mg IVP ONCE STA Promethazine HCl [Phenergan 25 mg/ml Vial] MEDS 10/12/16 23:56 Discontinued 25 mg .ROUTE .STK-MED ONE Promethazine HCl [Phenergan 25 mg/ml Vial] 25 mg MEDS 10/12/16 23:49 Discontinued 0.9 % Sodium Chloride [Sodium Chloride] 50 ml IV ONCE Sodium Chloride 0.9% [Sodium Chloride] 1,000 ml MEDS 10/12/16 23:17 Discontinued IV BOLUS Medications Discontinued Medications Generic Name Dose Route Start Last Admin Trade Name Freq PRN Reason Stop Dose Admin Sodium Chloride 1,000 mls @ 1,000 mls/hr 10/12/16 23:17 10/12/16 23:37 Sodium Chloride IV 10/13/16 00:16 1,000 mls/hr BOLUS STA Administration Promethazine HCl 25 mg/ Sodium 51 mls @ 75 mls/hr 10/12/16 23:49 10/13/16 00: 02 Chloride IV 10/13/16 00:29 75 mls/hr ONCE STA Administration Morphine Sulfate 4 mg 10/12/16 23:49 10/13/16 00:02 Morphine 4 Mg/Ml Syringe IVP 10/12/16 23:50 4 mg ONCE STA Administration Sodium Chloride 1 syr 10/12/16 23:17 Saline Flush IVF PRN PRN To flush IV Vital Signs: Temp Pulse Resp BP Pulse Ox 10/12/16 23:11 98.2 F 90 16 131/97 H 97 Departure - Departure Time of Disposition: 01:12 Disposition: HOME SELF-CARE Discharge Problem: Abdominal pain Instructions: Abdominal Pain (ED) Condition: Stable Pt referred to PMD for follow-up: Yes Additional Instructions: Stop smoking Follow up with PCP in 1-2 days Take pain medications as needed for pain Return in the morning for your test at 8a Prescriptions: Hydrocodone/Acetaminophen [[place] 5-325 Tablet] 1 tab PO Q6HR PRN #12 tablet PRN Reason: PAIN Ibuprofen [Motrin] 600 mg PO Q6H PRN #30 tablet PRN Reason: Analgesia Allergies/Adverse Reactions: Allergies ketorolac [From Toradol] Adverse Reaction (Verified 10/12/16 23:25) ZEST SOAP Adverse Reaction (Uncoded 08/14/16 13:22) Swelling, BURNING, EXTREME PAIN Home Medications: Ambulatory Orders Sertraline HCl [Zoloft] 200 mg PO DAILY #60 06/22/16 Acetaminophen with Codeine [Tylenol #3 Tab] 1 - 2 tab PO QID PRN #20 tablet Albuterol Sulfate [Proair Hfa] 1 puff IN DAILY 10/12/16 Clonazepam [Klonopin] 0.5 mg PO TID 10/12/16 Hydrocodone/Acetaminophen [[place] 5-325 Tablet] 1 tab PO Q6HR PRN #12 tablet Ibuprofen [Motrin] 600 mg PO Q6H PRN #30 tablet 10/13/16 Disposition Discussed With: Patient
[2016-10-13 00:02] LABS: ALBUMIN 3.9 g/dL (3.4-5.0); ALBUMIN/GLOBULIN RATIO 1.3; ANION GAP 14.7; BILIRUBIN,TOTAL 0.21 mg/dL (0.00-1.20); BUN/CREATININE RATIO 18.07; CALCIUM 9.8 mg/dL (8.2-10.2); CREATININE 0.83 mg/dL (0.60-1.30); POTASSIUM 3.7 mmol/L (3.5-5.10); TOTAL PROTEIN 6.9 g/dL (6.4-8.2)
[2016-10-13 00:50] LABS: PROTEIN,URINE NEGATIVE (NEGATIVE)
[2016-10-13 00:51] LABS: ADD URINE MICROSCOPIC YES; BILIRUBIN,URINE NEGATIVE (NEGATIVE); KETONES,URINE NEGATIVE (NEGATIVE); LEUKOCYTE ESTERASE ,URINE NEGATIVE (NEGATIVE); NITRITE,URINE NEGATIVE (NEGATIVE); URINE, BLOOD 2+ (NEGATIVE)
== END 2016-10-13 01:25 | disposition home or self-care (01) ==
LOC: ED 23:11
DX: R10.9 Unspecified abdominal pain (principal); N93.9 Abnormal uterine and vaginal bleeding, unspecified; F17.210 Nicotine dependence, cigarettes, uncomplicated; Z79.899 Other long term (current) drug therapy
CPT/HCPCS: 36415; 80053; 81001; 84703; 85025; 86900; 96361; 96365; 96375; 99283

== ENCOUNTER 2016-11-13 19:57 | Emergency (ER) ==
[2016-11-13 20:07] VITALS: BP 120/82; TEMP 98.8; BMI 35.2
[2016-11-13] MEDS ORDERED: DECADRON 4 MG/ML SDV IM STA (20:35)
[2016-11-13] MEDS ORDERED: DUONEB NEB STA (20:35)
--- NOTE | 2016-11-13 20:39 | ED.PDOC ---
General ED Provider: Dr. LA NENA LEW Chief Complaint: Dizziness Stated Complaint: feeling dizzi, sinus draiange, coughing, wheezing, took inhalers not helping. Time Seen by Physician: 20:38 Mode of Arrival: Walk-In Information Source: Patient Primary Care Provider: QUINTEN ANDERSON Nursing and Triage Documentation Reviewed and Agree: Yes Neurological Complaint Exam - Dizziness Complaint/Exam Onset: Gradual Symptoms Are: Still present Timing: Constant Episodes Lasting: Hours Initial Severity: Moderate Current Severity: Mild Character: Reports: Head spinning, Lightheaded Aggravating: Reports: None Alleviating: Reports: Rest Associated Signs and Symptoms: Reports: Short of air. Denies: Nausea, Vomiting , Diaphoresis, Tinnitus, Chest pain, Palpitations, Unsteady gait, GI blood loss , Visual changes, Decreased oral intake, Change in medication, Change in diet, OTC meds, Loss of balance Cardiac Risk Factors: Reports: None CVA Risk Factors: Reports: None Related Surgical History: Reports: None JVD Present: No Carotid Bruit Present: No Rectal Heme Positive: No Nystagmus Present: No Gag Reflex Present: Yes Meningeal Signs Positive: No Focal Weakness: Present: None Focal Sensory Loss: Present: None Gait: Normal [id number]: Normal Findings Romberg Test Positive: No Babinski Sign: Negative Right, Negative Left Heel to Toe Normal: No Roslyn-Hallpike Test Positive: No Differential Diagnoses: Other (urti, asthma) Review of Systems - Review Of Systems Constitutional: Reports: Malaise, Weakness Eyes: Reports: No symptoms Ears, Nose, Mouth, Throat: Reports: Nose discharge, Throat pain Respiratory: Reports: Cough Cardiac: Reports: No symptoms GI: Reports: No symptoms : Reports: No symptoms Musculoskeletal: Reports: No symptoms Skin: Reports: No symptoms Neurological: Reports: Weakness Endocrine: Reports: No symptoms Hematologic/Lymphatic: Reports: No symptoms All Other Systems: Reviewed and Negative Past Medical History - Past Medical History Previously Healthy: No Endocrine: Reports: None Cardiovascular: Reports: Other (edema of feet) Respiratory: Reports: Asthma, Other (C-7 FX, (3) C 4-6 BULGING DISC IN NECK WITH NARROW PASSAGEWAY) Hematological: Reports: None Gastrointestinal: Reports: None Genitourinary: Reports: Other (ovarian Cyst ) Neuro/Psych: Reports: Migraine, Anxiety, Depression, Other (numbness in hands; C 4-6 BULGING DISC IN NECK WITH NARROW PASSAGEWAY) Musculoskeletal: Reports: Arthritis Cancer: Reports: None Last Menstrual Period: 11/12/16 Other Pertinent Past Medical History: states using 800mg motrin witout benefit and had vaginal and nasal bleed w - Surgical History General Surgical History: Reports: (with postop cellulitis), Tonsillectomy, Orthopedic (C-7 FX,), Other (OVARIAN CYSTS/ UNDIAGNOSED MISCARRAGE 11/2010; EAR TUBES) - Family History Family History: Reports: Other (preeclampsa) - Social History Smoking Status: Current every day smoker, Heavy tobacco smoker Smoking Cessation Counseling Time: > 10 min Hx Substance Use: No Alcohol Screening: Occasionally - Immunizations Tetanus Shot up to Date: Yes Physical Exam - Physical Exam Appearance: Ill-appearing Eyes: JOSUÉ, EOMI, Conjunctiva clear ENT: Ears normal, Nose normal, Oropharynx normal Respiratory: Wheezes Cardiovascular: RRR, Pulses normal, No rub, No murmur GI/: Soft, Nontender, No masses, Bowel sounds normal, No Organomegaly Musculoskeletal: Normal strength, ROM intact, No edema, No calf tenderness Skin: Warm, Dry, Normal color Neurological: Sensation intact, Motor intact, Reflexes intact, Cranial nerves intact, Alert, Oriented Psychiatric: Affect appropriate, Mood appropriate Interpretation - Radiology Interpretation Radiology Interpretation By: Radiologist Radiology Results: Negative Exam Interpreted: CT Scan Critical Care Note - Critical Care Note Total Time (mins): 0 Course - Course Hematology/Chemistry: 11/13/16 20:40 11/13/16 20:40 Orders, Labs, Meds: Lab Review 11/13/16 20:40 WBC 8.85 RBC 5.04 Hgb 14.6 Hct 42.4 MCV 84.1 MCH 29.0 MCHC 34.4 RDW [employer] [place] 13.1 Plt Count 188 Immature Gran % (Auto) 0.2 Neut % (Auto) 61.8 Lymph % (Auto) 26.2 [place] % (Auto) 5.2 Eos % (Auto) 6.0 Baso % (Auto) 0.6 Immature Gran # (Auto) 0.0 Neut # 5.5 Lymph # 2.3 [place] # 0.5 Eos # 0.5 Baso # 0.1 Sodium 140 Potassium 3.7 Chloride 111 H Carbon Dioxide 20 L Anion Gap 12.7 BUN 14 Creatinine 0.85 Estimated GFR (MDRD) 84.00 BUN/Creatinine Ratio 16.47 Glucose 78 Calcium 9.2 Total Bilirubin 0.22 AST 13 L ALT 15 Alkaline Phosphatase 64 Total Protein 6.9 Albumin 4.0 Globulin 2.9 Albumin/Globulin Ratio 1.38 Serum , Qual Negative Orders Category Date Time Status NEBULIZER TREATMENT Stat CARDIO 11/13/16 20:36 Completed CBC W/ AUTO DIFF Stat LAB 11/13/16 20:40 Completed COMPREHENSIVE METABOLIC PANEL Stat LAB 11/13/16 20:40 Completed SERUM Stat LAB 11/13/16 20:40 Completed Dexamethasone 4 mg/ml Inj [Decadron 4 mg/ml Sdv] MEDS 11/13/16 20:35 Discontinued 4 mg IM ONCE STA Ipratropium/Albuterol Neb [Duoneb] MEDS 11/13/16 20:35 Discontinued 1 vial NEB ONCE STA CHEST, 2 VIEWS PA & LAT Stat RADS 11/13/16 20:[address] PELVIS W/O CONTRAST Stat RADS 11/13/16 21:20 Completed Medications Discontinued Medications Generic Name Dose Route Start Last Admin Trade Name Freq PRN Reason Stop Dose Admin Albuterol/Ipratropium 1 vial 11/13/16 20:35 11/13/16 20:49 Duoneb NEB 11/13/16 20:36 1 vial ONCE STA Administration Dexamethasone Sodium Phosphate 4 mg 11/13/16 20:35 11/13/16 20:43 Decadron 4 Mg/Ml Sdv IM 11/13/16 20:36 4 mg ONCE STA Administration Vital Signs: Temp Pulse Resp BP Pulse Ox 11/13/16 19:59 98.8 F 110 H 18 120/82 97 Departure - Departure Time of Disposition: 21:59 Disposition: HOME SELF-CARE Discharge Problem: Asthma attack Instructions: Asthma (ED) Condition: Stable Pt referred to PMD for follow-up: Yes Additional Instructions: stop smoking needs f/u with pmd to evaluate the rt hip pain, rest take medications with food Prescriptions: Cephalexin [Keflex] 500 mg PO Q12HR #20 capsule Prednisone 10 mg PO BIDWM #14 tablet Allergies/Adverse Reactions: Allergies ketorolac [From Toradol] Adverse Reaction (Verified 11/13/16 20:08) ZEST SOAP Adverse Reaction (Uncoded 11/13/16 20:08) Swelling, BURNING, EXTREME PAIN Home Medications: Ambulatory Orders Sertraline HCl [Zoloft] 200 mg PO DAILY #60 06/22/16 Albuterol Sulfate [Proair Hfa] 1 puff IN DAILY 10/12/16 Cephalexin [Keflex] 500 mg PO Q12HR #20 capsule 11/13/16 Gabapentin 200 mg PO PRN PRN 11/13/16 Prednisone 10 mg PO BIDWM #14 tablet 11/13/16 Disposition Discussed With: Patient
[2016-11-13 20:49] LABS: BASOPHILS # (AUTO) 0.1 K/uL (0-0.2); BASOPHILS % (AUTO) 0.6 % (0.0-3.0); EOSINOPHILS # (AUTO) 0.5 K/ul (0.0-0.7); HEMATOCRIT 42.4 % (37.0-47.0); HEMOGLOBIN 14.6 g/dl (12.0-16.0); IMMATURE GRANULOCYTE % (AUTO) 0.2 % (0.0-5.0); LYMPHOCYTES # (AUTO) 2.3 K/uL (0.60-3.4); LYMPHOCYTES % (AUTO) 26.2 (10.0-50.0); MEAN CORPUSCULAR HGB CONC 34.4 (31.8-35.4); MEAN CORPUSCULAR VOLUME 84.1 fl (81.0-99.0); MONOCYTES # (AUTO) 0.5 K/uL (0.4-2.0); MONOCYTES % (AUTO) 5.2 (0-10); NEUTROPHILS # (AUTO) 5.5 K/ul (2.0-6.9); NEUTROPHILS % (AUTO) 61.8; PLATELET COUNT 188 10^3/uL (140-440); RED BLOOD COUNT 5.04 10^6/ul (4.20-5.40); WHITE BLOOD COUNT 8.85 K/ul (4.6-10.2)
[2016-11-13 21:02] LABS: SERUM PREGNANCY INTERNAL QC INTERNAL QC VALID
[2016-11-13 21:06] LABS: ALBUMIN/GLOBULIN RATIO 1.38; ANION GAP 12.7; BILIRUBIN,TOTAL 0.22 mg/dL (0.00-1.20); BUN/CREATININE RATIO 16.47; CALCIUM 9.2 mg/dL (8.2-10.2); CREATININE 0.85 mg/dL (0.60-1.30); POTASSIUM 3.7 mmol/L (3.5-5.10); TOTAL PROTEIN 6.9 g/dL (6.4-8.2)
--- NOTE | 2016-11-13 21:51 | CT ---
EXAM: CT of the pelvis without contrast History: Right hip pain and trauma. Technique: Multiplanar CT images through the pelvis were obtained without the administration of IV contrast Findings: No bladder wall thickening. Trace pelvic fluid. The appendix is visualized and is normal. No acute fracture or dislocation. Bilateral hip joint spaces are preserved. Surrounding soft tissu es demonstrate no acute findings. Marginal sclerosis of the bilateral sacroiliac joints with mild j oint space narrowing. No burt erosive osseous changes identified. Impression: 1. No acute osseous abnormality and intact bilateral hip joints. 2. Mild degenerative changes of the bilateral sacroiliac joints.
--- NOTE | 2016-11-13 21:52 | DI ---
EXAM: Single view of the chest. History: Cough, short of breath Comparison: Chest radiograph 08/14/2016 Findings: Heart size is normal. No focal consolidation. No appreciable pleural fluid and no pneum othorax. No acute osseous abnormalities. Calcified granulomas again seen within the thorax. Impression: No acute cardiopulmonary process. No change compared to the prior study.
== END 2016-11-13 22:06 | disposition home or self-care (01) ==
LOC: ED 19:57
DX: J45.901 Unspecified asthma with (acute) exacerbation (principal); R42 Dizziness and giddiness; F17.210 Nicotine dependence, cigarettes, uncomplicated; M25.551 Pain in right hip; Z79.899 Other long term (current) drug therapy
CPT/HCPCS: 36415; 80053; 84703; 85025; 94640; 96372; 99284

== ENCOUNTER 2017-02-11 12:25 | Emergency (ER) ==
[2017-02-11 12:30] VITALS: BP 126/82; TEMP 97.6; BMI 34.3
--- NOTE | 2017-02-11 13:01 | ED.PDOC ---
General ED Provider: Dr. THAD BEEBE Chief Complaint: Neck Pain Non-Injury Stated Complaint: neck pain Time Seen by Physician: 12:36 (seen with EVAN/VINAY AT ALL TIMES) Mode of Arrival: Walk-In Information Source: Patient Exam Limitations: No limitations Primary Care Provider: QUINTEN ANDERSON Nursing and Triage Documentation Reviewed and Agree: Yes (CHRONIC NECK PAIN NO INJURY) Musculoskeletal Complaint Exam - Neck Pain Complaint/Exam Mechanism of Injury: Reports: No known trauma Onset/Duration: CHRONIC NO FALLS Symptoms Are: Still present Timing: Constant Episodes Lasting: Hours Initial Severity: Moderate Current Severity: Moderate Location: Reports: Diffuse Character: Reports: Aching Aggravating: Reports: None Alleviating: Reports: None Associated Signs and Symptoms: Reports: Headache Related History: Reports: Similar episode Meningitis Risk Factors: Reports: None Cervical Spine Injury Risk Factors: Reports: None Related Surgical History: Reports: None Carotid Bruit Present: No Pain on Passive Flexion: No Positive Kernig's Sign: No Tenderness: Present: Midline Focal Weakness: Present: None Focal Sensory Loss: Reports: None Nexus Low Risk Criteria: No evidence of intoxicat., No Altered LOC, No focal neuro deficit, No distracting injuries Differential Diagnoses: Sprain, Strain Review of Systems - Review Of Systems Constitutional: Reports: No symptoms Eyes: Reports: No symptoms Ears, Nose, Mouth, Throat: Reports: No symptoms Respiratory: Reports: No symptoms Cardiac: Reports: No symptoms GI: Reports: No symptoms : Reports: No symptoms Musculoskeletal: Reports: Neck pain Skin: Reports: No symptoms Neurological: Reports: No symptoms Endocrine: Reports: No symptoms Hematologic/Lymphatic: Reports: No symptoms All Other Systems: Reviewed and Negative Past Medical History - Past Medical History Previously Healthy: No Endocrine: Reports: None Cardiovascular: Reports: Other (edema of feet) Respiratory: Reports: Asthma, Other (C-7 FX, (3) C 4-6 BULGING DISC IN NECK WITH NARROW PASSAGEWAY) Hematological: Reports: None Gastrointestinal: Reports: None Genitourinary: Reports: Other (ovarian Cyst ) Neuro/Psych: Reports: Migraine, Anxiety, Depression, Other (numbness in hands; C 4-6 BULGING DISC IN NECK WITH NARROW PASSAGEWAY) Musculoskeletal: Reports: Arthritis Cancer: Reports: None Last Menstrual Period: 1 WEEK AGO Other Pertinent Past Medical History: states using 800mg motrin witout benefit and had vaginal and nasal bleed w - Surgical History General Surgical History: Reports: (with postop cellulitis), Tonsillectomy, Orthopedic (C-7 FX,), Other (OVARIAN CYSTS/ UNDIAGNOSED MISCARRAGE 11/2010; EAR TUBES) - Family History Family History: Reports: Other (preeclampsa) - Social History Smoking Status: Current every day smoker, Heavy tobacco smoker Hx Substance Use: No Alcohol Screening: Occasionally Physical Exam - Physical Exam Appearance: Well-appearing, No pain distress, Well-nourished Eyes: JOSUÉ, EOMI, Conjunctiva clear ENT: Ears normal, Nose normal, Oropharynx normal Respiratory: Airway patent, Breath sounds clear, Breath sounds equal, Respirations nonlabored Cardiovascular: RRR, Pulses normal, No rub, No murmur GI/: Soft, Nontender, No masses, Bowel sounds normal, No Organomegaly Musculoskeletal: Normal strength, ROM intact, No edema, No calf tenderness Skin: Warm, Dry, Normal color Neurological: Sensation intact, Motor intact, Reflexes intact, Cranial nerves intact, Alert, Oriented Psychiatric: Affect appropriate, Mood appropriate Critical Care Note - Critical Care Note Total Time (mins): 0 Course - Course Vital Signs: Temp Pulse Resp BP Pulse Ox 02/11/17 12:26 97.6 F 96 H 18 126/82 97 Departure - Departure Time of Disposition: 13:01 Disposition: HOME SELF-CARE Discharge Problem: Neck pain Instructions: Neck Pain (ED) Condition: Good Pt referred to PMD for follow-up: Yes Allergies/Adverse Reactions: Allergies ketorolac [From Toradol] Adverse Reaction (Verified 02/11/17 12:31) ZEST SOAP Adverse Reaction (Uncoded 11/13/16 20:08) Swelling, BURNING, EXTREME PAIN Home Medications: Ambulatory Orders Albuterol Sulfate [Proair Hfa] 1 puff IN DAILY 10/12/16 Gabapentin 200 mg PO PRN PRN 11/13/16 Disposition Discussed With: Patient
== END 2017-02-11 13:11 | disposition home or self-care (01) ==
LOC: ED 12:25
DX: M54.2 Cervicalgia (principal); G89.29 Other chronic pain; F17.210 Nicotine dependence, cigarettes, uncomplicated
CPT/HCPCS: 99282

== ENCOUNTER 2017-02-21 12:25 | Outpatient (CLI) | END 2017-02-21 12:26 | disposition home or self-care (01) | LOC: LAB 12:25 | PROVIDERS: ATTEND Nurse Practitioner Family | DX: J02.9 Acute pharyngitis, unspecified (principal) | CPT/HCPCS: 87651; 87880 ==

== ENCOUNTER 2017-04-14 14:38 | Emergency (ER) ==
[2017-04-14 14:45] VITALS: BP 130/84; TEMP 97.8; BMI 35.5
== END 2017-04-14 15:20 | disposition left against medical advice (07) ==
LOC: ED 14:38
DX: R10.30 Lower abdominal pain, unspecified (principal)

== ENCOUNTER 2017-04-25 22:16 | Emergency (ER) ==
[2017-04-25 22:29] VITALS: BP 147/83; TEMP 100.4; BMI 34.3
--- NOTE | 2017-04-25 22:45 | ED.PDOC ---
General ED Provider: Dr. LA NENA LEW Chief Complaint: Vaginal Discharge/Swelling Stated Complaint: Burning and frequency of urination, feeling heavyness in pelvis. had Diarrhea 2 days. Time Seen by Physician: 22:45 Mode of Arrival: Walk-In Information Source: Patient Primary Care Provider: LA NENA LEW[facility] Nursing and Triage Documentation Reviewed and Agree: Yes Complaint Exam - UTI Female Complaint/Exam Patient Complains of: Reports: Painful urination, Blood in urine Symptoms Are: Still present Timing: Constant Initial Severity: Moderate Current Severity: Moderate Associated Signs and Symptoms: Reports: Fever, Chills. Denies: Flank pain, Dyspareunia, Vaginal discharge Patient Rh Status: Unknown Related Surgical History: Reports: None CVA Tenderness: No Suprapubic Tenderness: Yes Differential Diagnoses: Cystitis Review of Systems - Review Of Systems Constitutional: Reports: No symptoms Eyes: Reports: No symptoms Ears, Nose, Mouth, Throat: Reports: No symptoms Respiratory: Reports: No symptoms Cardiac: Reports: No symptoms GI: Reports: No symptoms : Reports: Burning, Dysuria, Discharge Musculoskeletal: Reports: No symptoms Skin: Reports: No symptoms Neurological: Reports: No symptoms Endocrine: Reports: No symptoms Hematologic/Lymphatic: Reports: No symptoms All Other Systems: Reviewed and Negative Past Medical History - Past Medical History Previously Healthy: No Endocrine: Reports: None Cardiovascular: Reports: Other (edema of feet) Respiratory: Reports: Asthma, Other (C-7 FX, (3) C 4-6 BULGING DISC IN NECK WITH NARROW PASSAGEWAY) Hematological: Reports: None Gastrointestinal: Reports: None Genitourinary: Reports: Other (ovarian Cyst ) Neuro/Psych: Reports: Migraine, Anxiety, Depression, Other (numbness in hands; C 4-6 BULGING DISC IN NECK WITH NARROW PASSAGEWAY) Musculoskeletal: Reports: Arthritis Cancer: Reports: None Last Menstrual Period: 04/03/17 Other Pertinent Past Medical History: states using 800mg motrin witout benefit and had vaginal and nasal bleed w - Surgical History General Surgical History: Reports: (with postop cellulitis), Tonsillectomy, Orthopedic (C-7 FX,), Other (OVARIAN CYSTS/ UNDIAGNOSED MISCARRAGE 11/2010; EAR TUBES) - Family History Family History: Reports: Other (preeclampsa) - Social History Smoking Status: Current every day smoker, Heavy tobacco smoker Smoking Cessation Counseling Time: > 3 min - 10 min Hx Substance Use: Yes (ALCOHOL IN THE PAST) Alcohol Screening: None - Immunizations Tetanus Shot up to Date: Yes Physical Exam - Physical Exam Appearance: Well-appearing, Obese Eyes: JOSUÉ, EOMI, Conjunctiva clear ENT: Ears normal, Nose normal, Oropharynx normal Respiratory: Airway patent, Breath sounds clear, Breath sounds equal, Respirations nonlabored Cardiovascular: RRR, Pulses normal, No rub, No murmur GI/: Soft, Nontender, No masses, Bowel sounds normal, No Organomegaly Musculoskeletal: Normal strength, ROM intact, No edema, No calf tenderness Skin: Warm, Dry, Normal color Neurological: Sensation intact, Motor intact, Reflexes intact, Cranial nerves intact, Alert, Oriented Psychiatric: Affect appropriate, Mood appropriate Interpretation - Radiology Interpretation Radiology Interpretation By: Radiologist Radiology Results: Negative Exam Interpreted: CT Scan Re-Evaluation - Re-Evaluation Time of Re-Evaluation: 23:56 Status: Improved Critical Care Note - Critical Care Note Total Time (mins): 0 Course - Course Hematology/Chemistry: 04/25/17 22:45 04/25/17 22:45 Orders, Labs, Meds: Lab Review 04/25/17 04/25/17 04/25/17 22:40 22:40 22:45 WBC 13.84 H RBC 4.96 Hgb 14.7 Hct 41.7 MCV 84.1 MCH 29.6 MCHC 35.3 RDW [place] 13.5 Plt Count 197 Immature Gran % (Auto) 0.4 Neut % (Auto) 75.0 Lymph % (Auto) 15.9 [place] % (Auto) 5.2 Eos % (Auto) 3.2 Baso % (Auto) 0.3 Immature Gran # (Auto) 0.1 Neut # 10.4 H Lymph # 2.2 [place] # 0.7 Eos # 0.4 Baso # 0.0 Sodium Potassium Chloride Carbon Dioxide Anion Gap BUN Creatinine Estimated GFR (MDRD) BUN/Creatinine Ratio Glucose Calcium Total Bilirubin AST ALT Alkaline Phosphatase Total Protein Albumin Globulin Albumin/Globulin Ratio Urine Color Yellow Urine Clarity Clear Urine pH 6.5 Ur Specific [place] 1.020 Urine Protein Negative Urine Glucose (UA) Negative Urine Ketones Negative Urine Blood Negative Urine Nitrite Negative Urine Bilirubin Negative Urine Urobilinogen 0.2 Ur Leukocyte Esterase Negative Urine Test Negative 04/25/17 22:45 WBC RBC Hgb Hct MCV MCH MCHC RDW [place] [place] Plt Count Immature Gran % (Auto) Neut % (Auto) Lymph % (Auto) [place] % (Auto) Eos % (Auto) Baso % (Auto) Immature Gran # (Auto) Neut # Lymph # [place] # Eos # Baso # Sodium 139 Potassium 3.7 Chloride 110 H Carbon Dioxide 17 L Anion Gap 15.7 BUN 15 Creatinine 0.82 Estimated GFR (MDRD) 87.00 BUN/Creatinine Ratio 18.29 Glucose 90 Calcium 9.5 Total Bilirubin 0.14 AST 13 L ALT 20 Alkaline Phosphatase 70 Total Protein 7.2 Albumin 3.7 Globulin 3.5 Albumin/Globulin Ratio 1.06 Urine Color Urine Clarity Urine pH Ur Specific [place] Urine Protein Urine Glucose (UA) Urine Ketones Urine Blood Urine Nitrite Urine Bilirubin Urine Urobilinogen Ur Leukocyte Esterase Urine Test Orders Category Date Time Status CBC W/ AUTO DIFF Stat LAB 04/25/17 22:45 Completed CMP [COMPREHENSIVE METABOLIC PANEL] Stat LAB 04/25/17 22:45 Completed URINALYSIS C & S IF INDICATED Stat LAB 04/25/17 22:40 Completed URINE Stat LAB 04/25/17 22:40 Completed Morphine Sulfate [Morphine 2 mg/ml Syringe] MEDS 04/25/17 22:51 Discontinued 2 mg IM ONCE STA Ondansetron HCl/Pf [Zofran 4 mg/2 ml] MEDS 04/25/17 22:51 Discontinued 4 mg IM ONCE STA CT ABDOMEN/PELVIS WO CONTRAST Stat RADS 04/25/17 22:51 Completed Medications Discontinued Medications Generic Name Dose Route Start Last Admin Trade Name Lane PRN Reason Stop Dose Admin Morphine Sulfate 2 mg 04/25/17 22:51 04/25/17 23:08 Morphine 2 Mg/Ml Syringe IM 04/25/17 22:52 2 mg ONCE STA Administration Ondansetron HCl 4 mg 04/25/17 22:51 04/25/17 23:06 Zofran 4 Mg/2 Ml IM 04/25/17 22:52 4 mg ONCE STA Administration Vital Signs: Temp Pulse Resp BP Pulse Ox 04/25/17 22:17 100.4 F H 100 H 24 147/83 H 98 Departure - Departure Time of Disposition: 23:55 Disposition: HOME SELF-CARE Discharge Problem: Viral illness Instructions: Viral Syndrome (ED) Condition: Good Pt referred to PMD for follow-up: Yes Additional Instructions: Increase hydration Needs F/u with OBGYN Allergies/Adverse Reactions: Allergies ketorolac [From Toradol] Adverse Reaction (Verified 04/25/17 22:30) ZEST SOAP Adverse Reaction (Uncoded 04/25/17 22:30) Swelling, BURNING, EXTREME PAIN Home Medications: Ambulatory Orders Hydrocodone Bit/Acetaminophen [[place] 5-325] 1 tab PO BID PRN 04/14/17 Disposition Discussed With: Patient
[2017-04-25] MEDS ORDERED: MORPHINE 2 MG/ML SYRINGE IM STA (22:51)
[2017-04-25] MEDS ORDERED: ZOFRAN 4 MG/2 ML IM STA (22:51)
[2017-04-25 22:52] LABS: BASOPHILS % (AUTO) 0.3 % (0.0-3.0); EOSINOPHILS # (AUTO) 0.4 K/ul (0.0-0.7); EOSINOPHILS % (AUTO) 3.2 % (0.0-7.0); HEMATOCRIT 41.7 % (37.0-47.0); HEMOGLOBIN 14.7 g/dl (12.0-16.0); IMMATURE GRANULOCYTE % (AUTO) 0.4 % (0.0-5.0); LYMPHOCYTES # (AUTO) 2.2 K/uL (0.60-3.4); LYMPHOCYTES % (AUTO) 15.9 (10.0-50.0); MEAN CORPUSCULAR HEMOGLOBIN 29.6 pg (27.0-31.0); MEAN CORPUSCULAR HGB CONC 35.3 (31.8-35.4); MEAN CORPUSCULAR VOLUME 84.1 fl (81.0-99.0); MONOCYTES # (AUTO) 0.7 K/uL (0.4-2.0); MONOCYTES % (AUTO) 5.2 (0-10); NEUTROPHILS # (AUTO) 10.4 K/ul (2.0-6.9); PLATELET COUNT 197 10^3/uL (140-440); RED BLOOD COUNT 4.96 10^6/ul (4.20-5.40); WHITE BLOOD COUNT 13.84 K/ul (4.6-10.2)
[2017-04-25 22:56] LABS: BILIRUBIN,URINE Negative (NEGATIVE); KETONES,URINE Negative (NEGATIVE); LEUKOCYTE ESTERASE ,URINE Negative (NEGATIVE); NITRITE,URINE Negative (NEGATIVE); PH,URINE 6.5 (5-9); PROTEIN,URINE Negative (NEGATIVE); URINE, BLOOD Negative (NEGATIVE)
[2017-04-25 22:57] LABS: ADD URINE MICROSCOPIC NO; URINE PREGNANCY INTERNAL QC INTERNAL QC VALID
[2017-04-25 23:12] LABS: ALBUMIN 3.7 g/dL (3.4-5.0); ALBUMIN/GLOBULIN RATIO 1.06; ANION GAP 15.7; BILIRUBIN,TOTAL 0.14 mg/dL (0.00-1.20); BUN/CREATININE RATIO 18.29; CALCIUM 9.5 mg/dL (8.2-10.2); CREATININE 0.82 mg/dL (0.60-1.30); POTASSIUM 3.7 mmol/L (3.5-5.10); TOTAL PROTEIN 7.2 g/dL (6.4-8.2)
--- NOTE | 2017-04-25 23:52 | CT ---
EXAM: CT abdomen and pelvis without contrast. HISTORY: Lower abdominal pain. PROCEDURE: Contiguous axial CT images of the abdomen and pelvis without contrast with coronal and sa gittal reformats. FINDINGS: The liver, gallbladder, pancreas, spleen, adrenal glands and kidneys are normal in appearan ce. The abdominal aorta is normal in appearance. The visualized loops of bowel and appendix are norm al in appearance. No free fluid or free air in the abdomen or pelvis. The bladder is minimally filled with no abnormality identified. The uterus is unremarkable. There are degenerative changes involving the sacroiliac joints. There is minimal subcutaneous air in the right flank consistent with an inje ction site. Impression: No acute findings in the abdomen or pelvis. Degenerative changes involving the sacroiliac joints. Right flank injection site.
== END 2017-04-26 00:11 | disposition home or self-care (01) ==
LOC: ED 22:16
DX: B34.9 Viral infection, unspecified (principal); F17.210 Nicotine dependence, cigarettes, uncomplicated
CPT/HCPCS: 36415; 80053; 81001; 81025; 85025; 96372; 99283

== ENCOUNTER 2017-07-23 18:40 | Emergency (ER) ==
[2017-07-23 18:45] VITALS: BP 118/81; TEMP 99.4; BMI 35.2
--- NOTE | 2017-07-23 18:57 | ED.PDOC ---
General Stated Complaint: 12 wk OB; nausea X 1 month; worse today. Urinary frequency. Time Seen by Physician: 18:55 Mode of Arrival: Walk-In Information Source: Patient Exam Limitations: No limitations, Clinical condition Nursing and Triage Documentation Reviewed and Agree: Yes Reviewed sepsis parameters & appropriate labs ordered?: Yes System Inflammatory Response Syndrome: Not Applicable System Inflammatory Response Syndrome: Not Applicable <BALDO PITTS - Last Filed: 07/23/17 18:53> <JOSE KILLIAN - Last Filed: 07/24/17 02:54> ED Provider: Dr. JOSE KILLIAN Chief Complaint: Nausea/Vomiting [facility] Sepsis Protocol: For patient's 13 years and over: Temp is 96.8 and below OR 101 and greater Pulse >90 BPM Resp >20/minute Acutely Altered Mental Status Are patient's symptoms suggestive of a new infection, such as: -Pneumonia -Skin, Soft Tissue -Endocarditis -UTI -Bone, Joint Infection -Implantable Device -Acute Abdominal Infection -Wound Infection -Meningitis -Blood Stream Catheter Infection -Unknown Review of Systems - Review Of Systems Constitutional: Reports: No symptoms Eyes: Reports: No symptoms Ears, Nose, Mouth, Throat: Reports: No symptoms Respiratory: Reports: No symptoms Cardiac: Reports: No symptoms GI: Reports: Abdominal pain : Reports: Urgency Neurological: Reports: Anxiety Endocrine: Reports: No symptoms Hematologic/Lymphatic: Reports: No symptoms All Other Systems: Reviewed and Negative <JOSE KILLIAN - Last Filed: 07/24/17 02:54> Past Medical History - Past Medical History Previously Healthy: No Endocrine: Reports: None Cardiovascular: Reports: Other (edema of feet) Respiratory: Reports: Asthma, Other (C-7 FX, (3) C 4-6 BULGING DISC IN NECK WITH NARROW PASSAGEWAY) Hematological: Reports: None Gastrointestinal: Reports: None Genitourinary: Reports: Other (ovarian Cyst ) Neuro/Psych: Reports: Migraine, Anxiety, Depression, Other (numbness in hands; C 4-6 BULGING DISC IN NECK WITH NARROW PASSAGEWAY) Musculoskeletal: Reports: Arthritis Cancer: Reports: None Last Menstrual Period: 12 weeks preg. Other Pertinent Past Medical History: states using 800mg motrin witout benefit and had vaginal and nasal bleed w - Surgical History General Surgical History: Reports: (with postop cellulitis), Tonsillectomy, Orthopedic (C-7 FX,), Other (OVARIAN CYSTS/ UNDIAGNOSED MISCARRAGE 11/2010; EAR TUBES) - Family History Family History: Reports: Other (preeclampsa) - Social History Smoking Status: Current every day smoker, Heavy tobacco smoker Hx Substance Use: Yes (ALCOHOL IN THE PAST) Alcohol Screening: None <HONGBALDO - Last Filed: 07/23/17 18:53> Physical Exam - Physical Exam Appearance: Ill-appearing, Obese Ill-appearing: Moderate Pain Distress: Mild Neck: Supple Respiratory: Airway patent, Breath sounds clear, Breath sounds equal, Respirations nonlabored GI/: Soft Musculoskeletal: Normal strength Skin: Warm, Dry, Normal color Neurological: Alert, Oriented Psychiatric: Anxious <JOSE KILLIAN - Last Filed: 07/24/17 02:54> Critical Care Note - Critical Care Note Total Time (mins): 0 <JOSE KILLIAN - Last Filed: 07/24/17 02:54> Course - Course Hematology/Chemistry: 07/23/17 19:07 07/23/17 19:07 <JOSE KILLIAN - Last Filed: 07/24/17 02:54> - Course Orders, Labs, Meds: Lab Review 07/23/17 07/23/17 07/23/17 18:57 19:07 19:07 WBC 11.21 H RBC 4.66 Hgb 14.0 Hct 38.9 MCV 83.5 MCH 30.0 MCHC 36.0 H RDW [place] 13.0 Plt Count 185 Immature Gran % (Auto) 0.4 Neut % (Auto) 76.1 Lymph % (Auto) 17.0 [place] % (Auto) 4.5 Eos % (Auto) 1.7 Baso % (Auto) 0.3 Immature Gran # (Auto) 0.0 Neut # 8.5 H Lymph # 1.9 [place] # 0.5 Eos # 0.2 Baso # 0.0 Sodium 136 Potassium 3.6 Chloride 107 Carbon Dioxide 20 L Anion Gap 12.6 BUN 6 L Creatinine 0.63 Estimated GFR (MDRD) 118.00 BUN/Creatinine Ratio 9.52 Glucose 81 Calcium 10.0 Total Bilirubin 0.3 AST 10 L ALT 14 Alkaline Phosphatase 64 Total Protein 7.0 Albumin 3.4 Globulin 3.6 Albumin/Globulin Ratio 0.94 HCG, Quant Urine Color Yellow Urine Clarity Clear Urine pH 7.0 Ur Specific [place] 1.020 Urine Protein Negative Urine Glucose (UA) Negative Urine Ketones 1+ Urine Blood Negative Urine Nitrite Negative Urine Bilirubin Negative Urine Urobilinogen 0.2 Ur Leukocyte Esterase Negative 07/23/17 19:16 WBC RBC Hgb Hct MCV MCH MCHC RDW [place] [place] Plt Count Immature Gran % (Auto) Neut % (Auto) Lymph % (Auto) [place] % (Auto) Eos % (Auto) Baso % (Auto) Immature Gran # (Auto) Neut # Lymph # [place] # Eos # Baso # Sodium Potassium Chloride Carbon Dioxide Anion Gap BUN Creatinine Estimated GFR (MDRD) BUN/Creatinine Ratio Glucose Calcium Total Bilirubin AST ALT Alkaline Phosphatase Total Protein Albumin Globulin Albumin/Globulin Ratio HCG, Quant 25268.14 Urine Color Urine Clarity Urine pH Ur Specific [place] Urine Protein Urine Glucose (UA) Urine Ketones Urine Blood Urine Nitrite Urine Bilirubin Urine Urobilinogen Ur Leukocyte Esterase Orders Category Date Time Status CBC W/ AUTO DIFF Stat LAB 07/23/17 19:07 Completed COMPREHENSIVE METABOLIC PANEL Stat LAB 07/23/17 19:07 Completed HCG,QUANTITATIVE Stat LAB 07/23/17 19:16 Completed URINALYSIS C & S IF INDICATED Stat LAB 07/23/17 18:57 Completed Promethazine HCl [Phenergan 25 mg/ml Vial] MEDS 07/23/17 20:40 Discontinued 25 mg IM ONCE STA Sodium Chloride 0.9% [Sodium Chloride] 1,000 ml MEDS 07/23/17 19:07 Discontinued IV BOLUS Medications Discontinued Medications Generic Name Dose Route Start Last Admin Trade Name Freq PRN Reason Stop Dose Admin Sodium Chloride 1,000 mls @ 1,000 mls/hr 07/23/17 19:07 07/23/17 22:17 Sodium Chloride IV 07/23/17 20:06 1,000 mls/hr BOLUS STA Administration Promethazine HCl 25 mg 07/23/17 20:40 07/23/17 21:34 Phenergan 25 Mg/Ml Vial IM 07/23/17 20:41 25 mg ONCE STA Administration Vital Signs: Temp Pulse Resp BP Pulse Ox 07/23/17 18:41 99.4 F 88 16 118/81 98 Departure <BALDO PITTS - Last Filed: 07/23/17 18:53> - Departure Time of Disposition: 23:28 Pt referred to PMD for follow-up: Yes IPMP verified?: No Disposition Discussed With: Patient, Family <JOSE KILLIAN - Last Filed: 07/24/17 02:54> - Departure Disposition: HOME SELF-CARE Discharge Problem: Nausea, Vomiting Instructions: Nausea and Vomiting in (ED) Condition: Stable Additional Instructions: Follow up with PCP or OBGYN in the morning. Allergies/Adverse Reactions: Allergies ketorolac [From Toradol] Adverse Reaction (Verified 07/23/17 18:45) ZEST SOAP Adverse Reaction (Uncoded 04/25/17 22:30) Swelling, BURNING, EXTREME PAIN Home Medications: Ambulatory Orders Sertraline HCl [Zoloft] 100 mg PO DAILY 07/23/17
[2017-07-23] MEDS ORDERED: SODIUM CHLORIDE 1,000 ML IV STA (19:07)
[2017-07-23] MEDS ORDERED: PHENERGAN 25 MG/ML VIAL IM STA (20:40)
== END 2017-07-23 23:35 | disposition home or self-care (01) ==
LOC: ED 18:40
DX: O21.9 Vomiting of pregnancy, unspecified (principal); Z3A.12 12 weeks gestation of pregnancy; F17.210 Nicotine dependence, cigarettes, uncomplicated
CPT/HCPCS: 36415; 80053; 81001; 84702; 85025; 96360; 96375; 99283

== ENCOUNTER 2017-12-26 13:40 | Outpatient (CLI) | END 2017-12-26 13:41 | disposition home or self-care (01) | LOC: LAB 13:40 | PROVIDERS: ATTEND Obstetrics & Gynecology | DX: Z36.2 Encounter for other antenatal screening follow-up (principal); Z3A.23 23 weeks gestation of pregnancy | CPT/HCPCS: 36415; 82947; 85025; 87389 ==

== ENCOUNTER 2018-02-11 14:55 | Emergency (ER) ==
[2018-02-11 15:02] VITALS: BP 133/85; TEMP 98.9; BMI 32.9
--- NOTE | 2018-02-11 15:37 | ED.PDOC ---
General ED Provider: Dr. THAD BEEBE Chief Complaint: Wound Check Stated Complaint: POST OP WOUND CHECK Time Seen by Physician: 15:15 (SEE PHOTOS VINAY JOHNSON R.N. PRESENT AT ALL TIMES ) Mode of Arrival: Walk-In Information Source: Patient Exam Limitations: No limitations (PHOTOS SUBMITTED ) Primary [facility] Nursing and Triage Documentation Reviewed and Agree: Yes Does patient meet sepsis criteria?: No System Inflammatory Response Syndrome: Not Applicable Sepsis Protocol: For patient's 13 years and over: Temp is 96.8 and below OR 101 and greater Pulse >90 BPM Resp >20/minute Acutely Altered Mental Status Are patient's symptoms suggestive of a new infection, such as: -Pneumonia -Skin, Soft Tissue -Endocarditis -UTI -Bone, Joint Infection -Implantable Device -Acute Abdominal Infection -Wound Infection -Meningitis -Blood Stream Catheter Infection -Unknown Skin Complaint Exam - Skin/Soft Tissue Complaint/Exam Onset/Duration: HAD A C SECTION 13 DAYS AGO IN ED FOR A WOUND CHECK Symptoms Are: Still present Timing: Constant Initial Severity: Mild Current Severity: None Character: Denies: Redness, Swelling, Raised, Painful Aggravating: Reports: None Alleviating: Reports: None Associated Signs and Symptoms: Denies: Fever, Chills, Itching, Drainage, Bruising, Tenderness, Red streaks, Joint swelling Review of Systems - Review Of Systems Constitutional: Reports: No symptoms Eyes: Reports: No symptoms Ears, Nose, Mouth, Throat: Reports: No symptoms Respiratory: Reports: No symptoms Cardiac: Reports: No symptoms GI: Reports: No symptoms : Reports: No symptoms Musculoskeletal: Reports: No symptoms Skin: Reports: No symptoms Neurological: Reports: No symptoms Endocrine: Reports: No symptoms Hematologic/Lymphatic: Reports: No symptoms All Other Systems: Reviewed and Negative Past Medical History - Past Medical History Previously Healthy: No Endocrine: Reports: None Cardiovascular: Reports: Other (edema of feet) Respiratory: Reports: Asthma, Other (C-7 FX, (3) C 4-6 BULGING DISC IN NECK WITH NARROW PASSAGEWAY) Hematological: Reports: None Gastrointestinal: Reports: None Genitourinary: Reports: Other (ovarian Cyst ) Neuro/Psych: Reports: Migraine, Anxiety, Depression, Other (numbness in hands; C 4-6 BULGING DISC IN NECK WITH NARROW PASSAGEWAY) Musculoskeletal: Reports: Arthritis Cancer: Reports: None Last Menstrual Period: 9 months ago Other Pertinent Past Medical History: states using 800mg motrin witout benefit and had vaginal and nasal bleed w - Surgical History General Surgical History: Reports: (with postop cellulitis), Tonsillectomy, Orthopedic (C-7 FX,), Other (OVARIAN CYSTS/ UNDIAGNOSED MISCARRAGE 11/2010; EAR TUBES) - Family History Family History: Reports: Other (preeclampsa) - Social History Smoking Status: Current every day smoker, Heavy tobacco smoker Hx Substance Use: Yes (ALCOHOL IN THE PAST) Alcohol Screening: None Physical Exam - Physical Exam Appearance: Well-appearing, No pain distress, Well-nourished Eyes: JOSUÉ, EOMI, Conjunctiva clear ENT: Ears normal, Nose normal, Oropharynx normal Respiratory: Airway patent, Breath sounds clear, Breath sounds equal, Respirations nonlabored Cardiovascular: RRR, Pulses normal, No rub, No murmur GI/: Soft, Nontender, No masses, Bowel sounds normal, No Organomegaly Musculoskeletal: Normal strength, ROM intact, No edema, No calf tenderness Skin: Warm, Dry (POST OP WOUND WNL SEE PHOTOS ) Neurological: Sensation intact, Motor intact, Reflexes intact, Cranial nerves intact, Alert, Oriented Psychiatric: Affect appropriate, Mood appropriate Critical Care Note - Critical Care Note Total Time (mins): 0 Course - Course Vital Signs: Temp Pulse Resp BP Pulse Ox 02/11/18 14:55 98.9 F 84 16 133/85 95 Departure - Departure Time of Disposition: 15:37 (DENIED BREAST FEEDING , WOUND IS IN GOOD REPAIRS . PHOTOS SUBMITTED ) Disposition: HOME SELF-CARE Discharge Problem: Encounter for wound re-check Instructions: Wound Healing and Your Diet (ED), Chronic Wound Care (ED), Acute Wound Care (ED) Condition: Good Pt referred to PMD for follow-up: Yes IPMP verified?: No Additional Instructions: Please call your Family Physician as soon as possible to schedule a follow-up appointment. Allergies/Adverse Reactions: Allergies ketorolac [From Toradol] Adverse Reaction (Verified 02/11/18 15:04) ZEST SOAP Adverse Reaction (Uncoded 04/25/17 22:30) Swelling, BURNING, EXTREME PAIN Home Medications: Ambulatory Orders Ibuprofen 800 mg PO Q8HR PRN 02/11/18 Sertraline HCl [Zoloft] 200 mg PO DAILY 02/11/18
== END 2018-02-11 15:52 | disposition home or self-care (01) ==
LOC: ED 14:55
DX: S31.109A Unspecified open wound of abdominal wall, unspecified quadrant without penetration into peritoneal cavity, initial encounter (principal); Z48.89 Encounter for other specified surgical aftercare
CPT/HCPCS: 99281

== ENCOUNTER 2018-11-14 02:05 | Emergency (ER) ==
[2018-11-14 02:21] VITALS: BP 136/83; TEMP 99; BMI 33.3
[2018-11-14] MEDS ORDERED: ZOFRAN 4 MG/2 ML IM STA (03:06)
[2018-11-14] MEDS ORDERED: MORPHINE 2 MG/ML SYRINGE IM STA (03:07)
--- NOTE | 2018-11-14 05:34 | CT ---
EXAM: CT abdomen pelvis without intravenous contrast 11/14/2018. Sagittal and coronal reformatted i mages obtained HISTORY: Lower abdominal pain COMPARISON: 04/25/2017 FINDINGS: Bibasilar atelectasis. The liver, gallbladder, adrenal glands, kidneys, spleen and pancre as show no acute abnormality. There is no bowel obstruction. Normal appendix. Unremarkable urinary bladder. No free air or free fluid. No acute osseous abnormality. IMPRESSION: No acute inflammatory process identified within the abdomen or pelvis within the limitat ion of a noncontrast enhanced examination.
--- NOTE | 2018-11-14 05:47 | ED.PDOC ---
General ED Provider: Dr. NAKIA GIVENS-ER Chief Complaint: Vaginal Discharge/Swelling Stated Complaint: i hve pelvic pain Time Seen by Physician: 02:10 Mode of Arrival: Walk-In Information Source: Patient Exam Limitations: No limitations Primary Care Provider: LEVAR HOBSON Nursing and Triage Documentation Reviewed and Agree: Yes Does patient meet sepsis criteria?: No System Inflammatory Response Syndrome: Not Applicable Sepsis Protocol: For patient's 13 years and over: Temp is 96.8 and below OR 101 and greater Pulse >90 BPM Resp >20/minute Acutely Altered Mental Status Are patient's symptoms suggestive of a new infection, such as: -Pneumonia -Skin, Soft Tissue -Endocarditis -UTI -Bone, Joint Infection -Implantable Device -Acute Abdominal Infection -Wound Infection -Meningitis -Blood Stream Catheter Infection -Unknown GI Complaint Exam - Abdominal Pain Complaint/Exam Onset: Gradual Duration: 2 weeks Symptoms Are: Still present Timing: Constant Initial Severity: Mild Current Severity: Mild Location of Pain: Diffuse Character: Reports: Dull, Aching Alleviating: Reports: Spontaneous resolution Associated Signs and Symptoms: Denies: Diaphoresis, Fever, Cough, Chest pain, Dizziness, Back pain, Constipation, Blood in stool, Dysuria, Urinary frequency, Decreased urine output, Decreased appetite, Vaginal bleeding, Vaginal discharge , Nausea, Vomiting, Diarrhea, Sore throat, Decreased activity Differential Diagnoses: Pancreatitis, Irritable Bowel Syndrome Review of Systems - Review Of Systems Constitutional: Reports: No symptoms Eyes: Reports: No symptoms Ears, Nose, Mouth, Throat: Reports: No symptoms Respiratory: Reports: No symptoms Cardiac: Reports: No symptoms GI: Reports: Abdominal pain : Reports: No symptoms Musculoskeletal: Reports: No symptoms Skin: Reports: No symptoms Neurological: Reports: No symptoms Endocrine: Reports: No symptoms Hematologic/Lymphatic: Reports: No symptoms All Other Systems: Reviewed and Negative Past Medical History - Past Medical History Previously Healthy: No Endocrine: Reports: None Cardiovascular: Reports: Other (edema of feet) Respiratory: Reports: Asthma, Other (C-7 FX, (3) C 4-6 BULGING DISC IN NECK WITH NARROW PASSAGEWAY) Hematological: Reports: None Gastrointestinal: Reports: None Genitourinary: Reports: Other (ovarian Cyst ) Neuro/Psych: Reports: Migraine, Anxiety, Depression, Other (numbness in hands; C 4-6 BULGING DISC IN NECK WITH NARROW PASSAGEWAY) Musculoskeletal: Reports: Arthritis Cancer: Reports: None Last Menstrual Period: 3 weeks ago - states, "miscarried - was 4 weeks gestational" Other Pertinent Past Medical History: states using 800mg motrin witout benefit and had vaginal and nasal bleed w - Surgical History General Surgical History: Reports: (with postop cellulitis), Tonsillectomy, Orthopedic (C-7 FX,), Other (OVARIAN CYSTS/ UNDIAGNOSED MISCARRAGE 11/2010; EAR TUBES) - Family History Family History: Reports: Other (preeclampsa) - Social History Smoking Status: Current every day smoker, Heavy tobacco smoker Hx Substance Use: Yes (ALCOHOL IN THE PAST) Alcohol Screening: Occasionally - Immunizations Tetanus Shot up to Date: Yes Physical Exam - Physical Exam Appearance: Well-appearing, No pain distress, Well-nourished Eyes: JOSUÉ, EOMI, Conjunctiva clear ENT: Ears normal, Nose normal, Oropharynx normal Neck: Supple Respiratory: Airway patent, Breath sounds clear, Breath sounds equal, Respirations nonlabored Cardiovascular: RRR, Pulses normal, No rub, No murmur GI/: Soft, Nontender, No masses, Bowel sounds normal, No Organomegaly Musculoskeletal: Normal strength, ROM intact, No edema, No calf tenderness Skin: Warm, Dry, Normal color Neurological: Sensation intact, Motor intact, Reflexes intact, Cranial nerves intact, Alert, Oriented Psychiatric: Affect appropriate, Mood appropriate Interpretation - Radiology Interpretation Radiology Interpretation By: Radiologist Radiology Results: Negative Exam Interpreted: CT Scan Critical Care Note - Critical Care Note Total Time (mins): 0 Course - Course Hematology/Chemistry: 11/14/18 03:06 11/14/18 03:06 Orders, Labs, Meds: Lab Review 11/14/18 11/14/18 11/14/18 02:50 03:06 03:06 WBC 7.48 RBC 4.85 Hgb 14.1 Hct 43.0 MCV 88.7 MCH 29.1 MCHC 32.8 RDW [place]eff [place] 13.4 Plt Count 177 Immature Gran % (Auto) 0.3 Neut % (Auto) 61.7 Lymph % (Auto) 25.5 [place] % (Auto) 5.5 Eos % (Auto) 6.3 Baso % (Auto) 0.7 Immature Gran # (Auto) 0.0 Neut # (Auto) 4.6 Lymph # (Auto) 1.9 [place] # (Auto) 0.4 Eos # (Auto) 0.5 Baso # (Auto) 0.1 Sodium 140.4 Potassium 4.22 Chloride 108.8 H Carbon Dioxide 24.1 Anion Gap 11.72 BUN 11.8 Creatinine 0.79 Estimated GFR (MDRD) 90.00 BUN/Creatinine Ratio 14.93 Glucose 84.8 Calcium 9.40 Total Bilirubin 0.21 AST 15.6 ALT 15.1 Alkaline Phosphatase 50.0 Total Protein 6.68 Albumin 4.15 Globulin 2.53 Albumin/Globulin Ratio 1.64 Amylase 74.1 Lipase 104.0 Serum , Qual Urine Color Yellow Urine Clarity Slightly Urine pH 7.0 Ur Specific [place] 1.020 Urine Protein Negative Urine Glucose (UA) Negative Urine Ketones Negative Urine Blood Negative Urine Nitrite Negative Urine Bilirubin Negative Urine Urobilinogen 0.2 Ur Leukocyte Esterase Negative 11/14/18 03:06 WBC RBC Hgb Hct MCV MCH MCHC RDW [place] Plt Count Immature Gran % (Auto) Neut % (Auto) Lymph % (Auto) [place] % (Auto) Eos % (Auto) Baso % (Auto) Immature Gran # (Auto) Neut # (Auto) Lymph # (Auto) [place] # (Auto) Eos # (Auto) Baso # (Auto) Sodium Potassium Chloride Carbon Dioxide Anion Gap BUN Creatinine Estimated GFR (MDRD) BUN/Creatinine Ratio Glucose Calcium Total Bilirubin AST ALT Alkaline Phosphatase Total Protein Albumin Globulin Albumin/Globulin Ratio Amylase Lipase Serum , Qual Negative Urine Color Urine Clarity Urine pH Ur Specific [place] Urine Protein Urine Glucose (UA) Urine Ketones Urine Blood Urine Nitrite Urine Bilirubin Urine Urobilinogen Ur Leukocyte Esterase Orders Category Date Time Status AMYLASE Stat LAB 11/14/18 03:06 Completed CBC W/ AUTO DIFF Stat LAB 11/14/18 03:06 Completed COMPREHENSIVE METABOLIC PANEL Stat LAB 11/14/18 03:06 Completed LIPASE Stat LAB 11/14/18 03:06 Completed SERUM Stat LAB 11/14/18 03:06 Completed UA [URINALYSIS C & S IF INDICATED] Stat LAB 11/14/18 02:50 Completed Morphine Sulfate [Morphine 2 mg/ml Syringe] MEDS 11/14/18 03:07 Discontinued 2 mg IM ONCE STA Ondansetron HCl/Pf [Zofran 4 mg/2 ml] MEDS 11/14/18 03:06 Discontinued 4 mg IM ONCE STA CT ABDOMEN/PELVIS WO CONTRAST Stat RADS 11/14/18 02:52 Completed Medications Discontinued Medications Generic Name Dose Route Start Last Admin Trade Name Freq PRN Reason Stop Dose Admin Morphine Sulfate 2 mg 11/14/18 03:07 11/14/18 03:31 Morphine 2 Mg/Ml Syringe IM 11/14/18 03:08 2 mg ONCE STA Administration Ondansetron HCl 4 mg 11/14/18 03:06 11/14/18 03:31 Zofran 4 Mg/2 Ml IM 11/14/18 03:07 4 mg ONCE STA Administration Vital Signs: Temp Pulse Resp BP Pulse Ox 11/14/18 02:07 99 F 95 H 20 136/83 97 Departure - Departure Time of Disposition: 05:46 Disposition: HOME SELF-CARE Discharge Problem: Pelvic pain Instructions: Pelvic Pain in Women (ED) Condition: Good Pt referred to PMD for follow-up: Yes IPMP verified?: No Additional Instructions: librax q 8hrs prn pain#15---see your [employer] member zackery Allergies/Adverse Reactions: Allergies ketorolac [From Toradol] Adverse Reaction (Verified 11/14/18 02:21) ZEST SOAP Adverse Reaction (Uncoded 11/14/18 02:21) Swelling, BURNING, EXTREME PAIN Disposition Discussed With: Patient
== END 2018-11-14 05:52 | disposition home or self-care (01) ==
LOC: ED 02:05
DX: N89.8 Other specified noninflammatory disorders of vagina (principal); R10.2 Pelvic and perineal pain; F17.210 Nicotine dependence, cigarettes, uncomplicated
CPT/HCPCS: 36415; 80053; 81001; 82150; 83690; 84703; 85025; 96372; 99283

== ENCOUNTER 2019-01-05 20:54 | Emergency (ER) ==
[2019-01-05 21:03] VITALS: BP 127/91; TEMP 99.7; BMI 33.0
[2019-01-05] MEDS ORDERED: ZOFRAN 4 MG/2 ML IVP STA (21:18)
[2019-01-05] MEDS ORDERED: DILAUDID 1 MG/ML SYRINGE IVP STA (21:18)
[2019-01-05] MEDS ORDERED: LACTATED RINGERS 1,000 ML IV STA (21:18)
--- NOTE | 2019-01-05 21:22 | ED.PDOC ---
General ED Provider: Dr. JOSE KILLIAN Chief Complaint: Abdominal Pain Stated Complaint: Patient is a 23 year old female who comes to the ER with complains of right lower quadrant abdominal pain that started when she woke up this morning. She had associated Nausea and vomiting with radiation to the back and Flank area. Time Seen by Physician: 21:20 Mode of Arrival: Walk-In Information Source: Patient Primary Care Provider: LEVAR HOBSON Nursing and Triage Documentation Reviewed and Agree: Yes Does patient meet sepsis criteria?: No System Inflammatory Response Syndrome: Not Applicable Sepsis Protocol: For patient's 13 years and over: Temp is 96.8 and below OR 101 and greater Pulse >90 BPM Resp >20/minute Acutely Altered Mental Status Are patient's symptoms suggestive of a new infection, such as: -Pneumonia -Skin, Soft Tissue -Endocarditis -UTI -Bone, Joint Infection -Implantable Device -Acute Abdominal Infection -Wound Infection -Meningitis -Blood Stream Catheter Infection -Unknown GI Complaint Exam - Abdominal Pain Complaint/Exam Onset: Sudden Duration: this Morning. Symptoms Are: Still present Timing: Constant Initial Severity: Moderate Current Severity: Severe Location of Pain: RLQ Radiates To: Reports: Back, Flank Character: Reports: Dull, Aching Aggravating: Reports: Movement Alleviating: Reports: None Associated Signs and Symptoms: Reports: Back pain, Nausea, Vomiting. Denies: Dysuria, Urinary frequency, Decreased urine output, Vaginal discharge AAA Risk Factors: Reports: None Cardiac Risk Factors: Reports: None Ectopic Risk Factors: Denies: Maternal age >30 Ovarian Torsion Risk Factors: Reports: Ovarian cysts Surgical Obstruction Risk Factors: Reports: None Abdominal Findings: Present: Rebound tenderness (Right lower quadrant ) Differential Diagnoses: Appendicitis, Diverticulitis, Gastroenteritis, Pancreatitis, GB, PUD, Review of Systems - Review Of Systems Constitutional: Reports: No symptoms Eyes: Reports: No symptoms Ears, Nose, Mouth, Throat: Reports: No symptoms Respiratory: Reports: No symptoms Cardiac: Reports: No symptoms GI: Reports: Abdominal pain, Nausea, Vomiting : Reports: No symptoms Musculoskeletal: Reports: No symptoms Skin: Reports: No symptoms Neurological: Reports: No symptoms Endocrine: Reports: No symptoms Hematologic/Lymphatic: Reports: No symptoms All Other Systems: Reviewed and Negative Past Medical History - Past Medical History Previously Healthy: No Endocrine: Reports: None Cardiovascular: Reports: Other (edema of feet) Respiratory: Reports: Asthma, Other (C-7 FX, (3) C 4-6 BULGING DISC IN NECK WITH NARROW PASSAGEWAY) Hematological: Reports: None Gastrointestinal: Reports: None Genitourinary: Reports: Other (ovarian Cyst ) Neuro/Psych: Reports: Migraine, Anxiety, Depression, Other (numbness in hands; C 4-6 BULGING DISC IN NECK WITH NARROW PASSAGEWAY) Musculoskeletal: Reports: Arthritis Cancer: Reports: None Last Menstrual Period: PRESENTLY Other Pertinent Past Medical History: states using 800mg motrin witout benefit and had vaginal and nasal bleed w - Surgical History General Surgical History: Reports: (with postop cellulitis), Tonsillectomy, Orthopedic (C-7 FX,), Other (OVARIAN CYSTS/ UNDIAGNOSED MISCARRAGE 11/2010; EAR TUBES). Denies: Appendectomy, Cholecystectomy - Family History Family History: Reports: Other (preeclampsa) - Social History Smoking Status: Current every day smoker, Heavy tobacco smoker Hx Substance Use: Yes (ALCOHOL IN THE PAST) Alcohol Screening: Occasionally - Immunizations Tetanus Shot up to Date: No Physical Exam - Physical Exam Appearance: Ill-appearing Ill-appearing: Moderate Pain Distress: Severe Eyes: Conjunctiva clear ENT: Nose normal, Oropharynx normal Neck: Supple Respiratory: Airway patent, Breath sounds clear, Breath sounds equal, Respirations nonlabored Cardiovascular: RRR, Pulses normal, No rub, No murmur GI/: Soft, Tender (right lower quadrant ) Musculoskeletal: Normal strength, ROM intact, No edema, No calf tenderness Skin: Warm, Dry, Normal color Neurological: Sensation intact, Motor intact, Cranial nerves intact, Alert, Oriented Psychiatric: Anxious Interpretation - Radiology Interpretation Radiology Interpretation By: Radiologist Radiology Results: Negative Exam Interpreted: CT Scan (Abdomen and pelvis ) Re-Evaluation - Re-Evaluation Time of Re-Evaluation: 23:14 Status: Improved (but still has pain on the right lower abdomen ) Critical Care Note - Critical Care Note Total Time (mins): 30 Course - Course Hematology/Chemistry: 01/05/19 21:30 01/05/19 21:30 Orders, Labs, Meds: Lab Review 01/05/19 01/05/19 01/05/19 21:15 21:30 21:30 WBC 10.42 H RBC 4.65 Hgb 13.7 Hct 40.4 MCV 86.9 MCH 29.5 MCHC 33.9 RDW [place]eff [place] 13.5 Plt Count 201 Immature Gran % (Auto) 0.3 Neut % (Auto) 63.1 Lymph % (Auto) 26.9 [place] % (Auto) 4.6 Eos % (Auto) 4.5 Baso % (Auto) 0.6 Immature Gran # (Auto) 0.0 Neut # (Auto) 6.6 Lymph # (Auto) 2.8 [place] # (Auto) 0.5 Eos # (Auto) 0.5 Baso # (Auto) 0.1 Sodium 141.5 Potassium 3.60 Chloride 108.7 H Carbon Dioxide 23.7 Anion Gap 12.70 BUN 11.6 Creatinine 0.93 Estimated GFR (MDRD) 75.00 BUN/Creatinine Ratio 12.47 Glucose 88.9 Calcium 9.22 Total Bilirubin 0.17 L AST 10.9 L ALT 11.0 Alkaline Phosphatase 53.3 Total Protein 7.03 Albumin 4.22 Globulin 2.81 Albumin/Globulin Ratio 1.50 Amylase 88.9 Lipase 95.8 Serum , Qual Urine Color Yellow Urine Clarity Cloudy Urine pH 7.5 Ur Specific [place] 1.020 Urine Protein Negative Urine Glucose (UA) Negative Urine Ketones Negative Urine Blood Trace-lysed Urine Nitrite Positive Urine Bilirubin Negative Urine Urobilinogen 1.0 Ur Leukocyte Esterase Negative Urine Microscopic RBC 0-2 Urine Microscopic WBC 0-2 Ur Squamous Epith Cells 2-5 Urine Bacteria 3+ 01/05/19 21:30 WBC RBC Hgb Hct MCV MCH MCHC RDW [place] Plt Count Immature Gran % (Auto) Neut % (Auto) Lymph % (Auto) [place] % (Auto) Eos % (Auto) Baso % (Auto) Immature Gran # (Auto) Neut # (Auto) Lymph # (Auto) [place] # (Auto) Eos # (Auto) Baso # (Auto) Sodium Potassium Chloride Carbon Dioxide Anion Gap BUN Creatinine Estimated GFR (MDRD) BUN/Creatinine Ratio Glucose Calcium Total Bilirubin AST ALT Alkaline Phosphatase Total Protein Albumin Globulin Albumin/Globulin Ratio Amylase Lipase Serum , Qual Negative Urine Color Urine Clarity Urine pH Ur Specific [place] Urine Protein Urine Glucose (UA) Urine Ketones Urine Blood Urine Nitrite Urine Bilirubin Urine Urobilinogen Ur Leukocyte Esterase Urine Microscopic RBC Urine Microscopic WBC Ur Squamous Epith Cells Urine Bacteria Orders Category Date Time Status NPO REMINDER: IMAGING ONCE CARE 01/05/19 21:28 Completed ED IV/MEDIPORT/POWERPORT .ONCE EMERGENCY 01/05/19 21:18 Active AMYLASE Stat LAB 01/05/19 21:30 Completed CBC W/ AUTO DIFF Stat LAB 01/05/19 21:30 Completed COMPREHENSIVE METABOLIC PANEL Stat LAB 01/05/19 21:30 Completed LIPASE Stat LAB 01/05/19 21:30 Completed SERUM Stat LAB 01/05/19 21:30 Completed URINALYSIS C & S IF INDICATED Stat LAB 01/05/19 21:15 Completed URINE CULTURE Stat LAB 01/05/19 21:49 Received 0.9 % Sodium Chloride [Saline Flush] MEDS 01/05/19 21:18 Discontinued 1 syr IVF PRN PRN Butorphanol Tartrate [Stadol] MEDS 01/05/19 23:11 Discontinued 2 mg IVP ONCE STA Hydromorphone HCl [Dilaudid 1 mg/ml Syringe] MEDS 01/05/19 21:18 Discontinued 1 mg IVP ONCE STA Levofloxacin/D5w [Levaquin] 100 ml MEDS 01/05/19 23:04 Discontinued IV .STK-MED Levofloxacin/D5w [Levaquin] 500 mg MEDS 01/05/19 23:00 Discontinued Premix 100 ml D5w 1 bag IV ONCE Ondansetron HCl/Pf [Zofran 4 mg/2 ml] MEDS 01/05/19 21:18 Discontinued 4 mg IVP ONCE STA Ringers Lactated Solution [Lactated Ringers] 1,000 ml MEDS 01/05/19 21:[address] ABDOMEN/PELVIS W/WO CONTRAS Stat RADS 01/05/19 21:27 Completed Medications Discontinued Medications Generic Name Dose Route Start Last Admin Trade Name Freq PRN Reason Stop Dose Admin Butorphanol Tartrate 2 mg 01/05/19 23:11 01/05/19 23:14 Stadol IVP 01/05/19 23:12 2 mg ONCE STA Administration Hydromorphone HCl 1 mg 01/05/19 21:18 01/05/19 21:40 Dilaudid 1 Mg/Ml Syringe IVP 01/05/19 21:19 1 mg ONCE STA Administration Lactated Ringer's 1,000 mls @ 1,000 mls/hr 01/05/19 21:18 01/05/19 21:39 Lactated Ringers IV 01/05/19 22:17 1,000 mls/hr BOLUS STA Administration Levofloxacin/Dextrose 500 mg/ 100 mls @ 100 mls/hr 01/05/19 23:00 01/05/19 23 :09 Dextrose IV 01/05/19 23:59 100 mls/hr ONCE STA Administration Ondansetron HCl 4 mg 01/05/19 21:18 01/05/19 21:40 Zofran 4 Mg/2 Ml IVP 01/05/19 21:19 4 mg ONCE STA Administration Sodium Chloride 1 syr 01/05/19 21:18 01/05/19 23:17 Saline Flush IVF 1 syr PRN PRN Administration To flush IV Vital Signs: Temp Pulse Resp BP Pulse Ox 01/05/19 20:55 99.7 F H 94 H 18 127/91 H 97 Departure - Departure Time of Disposition: 23:50 Disposition: HOME SELF-CARE Discharge Problem: Pyelonephritis Instructions: Kidney Infection (ED) Condition: Stable Pt referred to PMD for follow-up: Yes IPMP verified?: No Additional Instructions: Take Medications as prescribed Follow up with PCP in 3 days Prescriptions: Hydrocodone Bit/Acetaminophen [[place] 5-325] 1 each PO Q6HR PRN #15 tablet PRN Reason: severe pain Levofloxacin [Levaquin] 500 mg PO DAILY #10 tablet Allergies/Adverse Reactions: Allergies ketorolac [From Toradol] Adverse Reaction (Verified 01/05/19 21:04) BURNING/EXTREME PAIN PT STATES DOES FINE WITH PILL FORM ZEST SOAP Adverse Reaction (Uncoded 01/05/19 21:04) Swelling, BURNING, EXTREME PAIN Home Medications: Ambulatory Orders Hydrocodone Bit/Acetaminophen [[place] 5-325] 1 each PO Q6HR PRN #15 tablet Levofloxacin [Levaquin] 500 mg PO DAILY #10 tablet 01/05/19 Disposition Discussed With: Patient
--- NOTE | 2019-01-05 22:42 | CT ---
EXAM: CT of the abdomen and pelvis with and without IV contrast. HISTORY: Right lower quadrant abdominal pain. PROCEDURE: Contiguous axial CT images of the abdomen and pelvis with and without IV contrast with co roselyn and sagittal reformats. FINDINGS: There is minimal bibasilar dependent atelectasis. The liver, gallbladder, pancreas, spleen , adrenal glands and kidneys are normal in appearance. The abdominal aorta is normal in appearance. The visualized loops of bowel and appendix are normal in appearance. No free fluid or free air in t he abdomen or pelvis. The bladder is minimally filled and normal in appearance. The uterus is unrem arkable. There is a tampon in the vagina. The bones and soft tissues are unremarkable. Impression: No acute findings in the abdomen or pelvis. Tampon in the vagina. Minimal bibasilar dependent atelectasis.
[2019-01-05] MEDS ORDERED: LEVAQUIN 500 MG in PREMIX 100 ML D5W 1 BAG IV STA (23:00)
[2019-01-05] MEDS ORDERED: LEVAQUIN 100 ML IV ONE (23:04)
[2019-01-05] MEDS ORDERED: STADOL IVP STA (23:11)
== END 2019-01-06 00:31 | disposition home or self-care (01) ==
LOC: ED 20:54
DX: N12 Tubulo-interstitial nephritis, not specified as acute or chronic (principal); R11.2 Nausea with vomiting, unspecified; F17.210 Nicotine dependence, cigarettes, uncomplicated
CPT/HCPCS: 36415; 80053; 81001; 82150; 83690; 84703; 85025; 87086; 87186; 96361; 96365; 96375; 99283